=== PATIENT | male | born 1965 | race African-American/Black ===

== ENCOUNTER 2016-09-17 21:14 | Emergency (ER) | payer OTHER ==
[~2016-09-17] VITALS: Ht 177.8 cm; Wt 93.4 kg
[~2016-09-17 21:14] MED LIST: NAPR1TAB9 PO
[2016-09-17 21:17] VITALS: TEMP 37; Ht 177.8 cm; Wt 93.4 kg
[2016-09-17] MEDS ORDERED: BENZOCAINE 20% (ORAJEL) 11.9 GM TUBE MT STA (21:36)
[2016-09-17] MEDS ORDERED: CLIN150C PO (21:40)
[2016-09-17] MEDS ORDERED: TRAM-10 PO (21:40)
[2016-09-17] MEDS ORDERED: TRAMADOL HCL 50 MG HOME PACK PO ONE (21:45)
[2016-09-17] MEDS ORDERED: CLINDAMYCIN 150MG HOME PACK PO ONE (21:45)
[2016-09-17 21:48] VITALS: BP 150/100; PULSE 80; O2SAT 98
--- NOTE | 2016-09-17 22:51 | EMERGENCY ROOM VISIT NOTE ---
History First contact with patient: 21:25 Chief Complaint: DENTAL PAIN Stated Complaint: ABCESS IN MOUTH Nursing Triage Summary: pt c/o having an abcess in mouth a couple weeks ago and now it came back and is causing pain History of Present Illness The patient is a 50 year old male who presents to the Emergency Room with complaints of dental pain for the past few days who has not seen a dentist in over 3 years. He describes the pain as aching, ranging in severity 8 out of 10. Nothing makes it better or worse. Patient denies facial swelling, fevers, dysphagia, chest pain, dyspnea, sore throat, cold symptoms. He is tolerating by mouth fluids and food. Review of Systems See HPI for pertinent positives & negatives. A total of 10 systems reviewed and were otherwise negative. Past Medical/Surgical History Medical Problems: (1) Tobacco Use Disorder Surgical Problems: (1) No significant past surgical history Social History Smoking Status: Current Every Day Smoker Alcohol Use: occasionally Housing Status: lives alone Occupation Status: employed Current/Historical Medications Scheduled Clindamycin Hcl (Cleocin), 150 MG PO QID Naproxen (Aleve), 440 MG PO Q12 Scheduled PRN Tramadol (Ultram), 1-2 TAB PO Q4H PRN for Pain Allergies Coded Allergies: Penicillins (Verified Allergy, Intermediate, RASH-ITCHINESS, 09/17/16) Physical Exam Vital Signs Date Time Temp Pulse Resp B/P Pulse Ox O2 Delivery O2 Flow Rate FiO2 09/17/16 21:48 80 150/100 98 Room Air 09/17/16 21:17 37.0 80 18 159/110 98 Room Air Pain Rating (0-10): 8.0 Physical Exam VITALS: Vitals are noted on the nurse's note and reviewed by myself. Vital signs hypertensive. GENERAL: Pleasant male, in no acute distress, nondiaphoretic, well-developed well-nourished. SKIN: The skin was without rashes, erythema, edema, or bruising. There is no tenting of the skin. Capillary reflex less than 2 seconds. HEAD: Normocephalic atraumatic. EARS: External auditory canals clear, tympanic membranes pearly brock without erythema or effusion bilaterally. EYES: Pupils equal round and reactive to light and accommodation. Conjunctivae without injection, sclerae without icterus. Extraocular movements intact. NOSE: Patent, turbinates without inflammation or discharge. No sinus tenderness. MOUTH: Mucous membranes moist. No Moises angina. Pharynx without erythema or exudate. Uvula midline. Airway patent. Tongue does not deviate. Dental exam: Extensive plaque buildup with dental decay with no palpable abscess overall dental hygiene fair NECK: Supple without nuchal rigidity. No lymphadenopathy. No thyromegaly. Cervical spine is nontender. No JVD. HEART: Regular rate and rhythm without murmurs gallops or rubs. LUNGS: Clear to auscultation bilaterally without wheezes, rales or rhonchi. No dullness to percussion. No retractions or accessory muscle use. ABDOMEN: Positive bowel sounds x 4. Normal tympanic percussion. Soft, nontender, without masses or organomegaly. Johnson sign negative. No guarding or rebound tenderness. MUSCULOSKELETAL: No muscle atrophy, erythema, or edema noted. NEURO: Patient was alert and oriented to person place and time. Normal sensation to light and sharp touch. No focal neurological deficits. Medical Decision & Procedures Medications Administered Medications (Trade) Dose Ordered Sig/Rex Route Start Time Stop Time Status Last Admin Dose Admin Tramadol HCl (Ultram Home Pack) 1 homepack UD ONCE PO 09/17/16 21:45 09/17/16 21:46 DC 09/17/16 22:03 1 HOMEPACK Clindamycin HCl (Cleocin 150MG Home Pack) 1 homepack UD ONCE PO 09/17/16 21:45 09/17/16 21:46 DC 09/17/16 22:02 1 HOMEPACK Benzocaine (Orajel 2% Oral Gel) 1 appln NOW STAT MT 09/17/16 21:36 09/17/16 21:38 DC 09/17/16 22:04 1 APPLN ED Course Prior records reviewed and summarized as above. Triage Nursing notes reviewed. The patient's history was concerning for dental pain Differential diagnosis: Etiologies such as Moises angina, cellulitis, abscess, cavity, gingivitis, as well as others were entertained.. Physical examination: The physical examination was consistent with dental pain and dental caries ER treatment provided: Cleocin, Orajel, Ultram On reassessment the patient felt better. Diagnostics interpreted by me: Deferred This appears to be dental pain from dental caries and elevated blood pressure. Patient was given a list of PCPs in the area and advised to follow-up. He is advised to monitor his blood pressure. He is advised to quit smoking. He is counseled on proper dental hygiene. He is advised follow-up with dentistry as soon as possible for definitive care for his ongoing dental issues. He is advised to return to the ER immediately for facial swelling, fevers, dysphagia, worsening signs or symptoms or as needed. Patient will assess on exam. No signs of Moises angina. He was well-appearing. By the evaluation outlined above emergent etiologies such as abscess, Moises angina, as well as others were deemed relatively unlikely. The pt informed about the findings as listed above. All questions were answered and pleased with the treatment. Return instructions were outlined and the patient was discharged in stable condition. Outpatient prescription management: Cleocin, Ultram Referral: The patient was referred back to dentist and primary care physician for follow- up in 2 to 3 days for a recheck of the current condition. Medical Decision As above [place] Drug Monitoring Program Search Results: patient reviewed within database, no issues identified Impression Primary Impression: Tooth pain with chewing Additional Impression: Dental caries Departure Information Dispostion Home / Self-Care Condition GOOD Prescriptions Tramadol (Ultram) 50 Mg Tab 1-2 TAB PO Q4H Y for Pain, #14 TAB For Initial Treatment Prov: Harleen Encarnacion .KATLYN 09/17/16 Clindamycin Hcl (CLEOCIN) 150 Mg Cap 150 MG PO QID, #40 CAP Prov: Harleen Encarnacion .KATLYN 09/17/16 Referrals No Doctor, Assigned (PCP) Forms HOME CARE DOCUMENTATION FORM, IMPORTANT VISIT INFORMATION Patient Instructions Visit Dental, [facility], [facility] Additional Instructions Monitor yor blood pressure. Clindamycin 150mg: Take one pill 4 times daily for 10 days for your infection. Take with food, but avoid dairy. Avoid prolonged sun exposure since this medication makes you temporarily more susceptible to sunburns. All antibiotics can cause diarrhea. If this occurs and you feel worse or it does not resolve in 1-2 days follow up with your doctor or return to the Emergency Department as this could be signs of serious underlying problems. Any medication can cause an allergic reaction, stop the pills immediately and return to the ER for rash, hives, breathing difficulties, or swelling. Ultram 50mg: Take 1-2 pills every four hours for breakthrough pain. Avoid alcohol, operating machinery or dangerous equipment, working on ladders or roofs , DRIVING, or situations where being under the influence may be dangerous. It is recommended to use an yemc-jvc-lrrzgtu stool softener such as Colace, 100mg twice daily while taking this medication to avoid constipation. Ibuprofen(Motrin, Advil) may be used for fever or pain. Use 600mg every six hours as needed. Take with food. Avoid using more than 2400mg in a 24 hour period. Do not use 2400mg per day for more than three consecutive days without physician direction. Prolonged inappropriate use can lead to stomach upset or ulcers. This medication can be taken if you need to drive, work, or perform activities which may be dangerous when taking narcotic pain medication. (AND/OR) Acetaminophen(Tylenol) may be used for fever or pain. Use 1000mg every six hours as needed. Avoid using more than 3000mg in a 24 hour period. This medication can be taken if you need to drive, work, or perform activities which may be dangerous when taking narcotic pain medication. [place] teeth twice a day, floss daily and do warm saltwater gargles 3 times a day. See a dentist as soon as possible for definitive care for your dental problem. Return to ER sooner for facial swelling, fever, redness, worsening signs or symptoms or as needed. Problem Qualifiers
== END 2016-09-17 22:08 | disposition home or self-care (01) ==
LOC: C.EDB 21:15 → C.EDD 22:08
DX: K08.89 Other specified disorders of teeth and supporting structures (principal); K02.9 Dental caries, unspecified; F17.200 Nicotine dependence, unspecified, uncomplicated; Z88.0 Allergy status to penicillin

== ENCOUNTER 2018-11-24 13:53 | Inpatient (IN) ==
[2018-11-24 14:20] LABS: Basophils # (auto) 0.05 K/uL (0-0.2); Basophils % (auto) 0.8 %; Eosinophils % (auto) 6.2 %; Hematocrit (blood only) 41.9 % (42-52); Hemoglobin 14.6 g/dL (14.0-18.0); Immature Granulocytes # (auto) 0.01 K/uL (0.00-0.02); Immature Granulocytes % (auto) 0.2 %; Lymphocytes # (auto) 2.36 K/uL (1.2-3.4); Lymphocytes % (auto) 36.8 %; Mean Corpuscular Hgb Conc 34.8 g/dL (32-36); Mean Corpuscular Volume 88.4 fL (80-100); Monocytes # (auto) 0.61 K/uL (0.11-0.59); Monocytes % (auto) 9.5 %; Neutrophils # (auto) 2.98 K/uL (1.4-6.5); Neutrophils % (auto) 46.5 %; Platelet Count 239 K/uL (130-400); RDW Coefficient of Variation 15.4 % (11.5-14.5); RDW Standard Deviation 50.2 fL (36.4-46.3); Red Blood Count 4.74 M/uL (4.7-6.1); White Blood Count 6.41 K/uL (4.8-10.8)
--- NOTE | 2018-11-24 14:26 | XRay Report ---
SINGLE VIEW CHEST CLINICAL HISTORY: Atypical chest pain. FINDINGS: An AP, portable, upright chest radiograph is obtained. No prior studies are available for c omparison at the time of dictation. The cardiomediastinal silhouette is unremarkable. The lungs and pleural spaces are clear. No pneumothorax is seen. The bony thorax is grossly intact. IMPRESSION: No active disease in the chest. Electronically signed by: Tato Vences M.D. 11/24/2018 2:25 PM
[2018-11-24 14:53] LABS: Albumin Globulin Ratio 1.2 (0.9-2); Albumin Level 3.8 gm/dl (3.4-5.0); BUN Creatinine Ratio 13.7 (10-20); Bilirubin,Total 0.3 mg/dl (0.2-1); Creatinine Clr Calc Pharmacy 107.7 ml/min; Est GFR (African American) 106.1; Est GFR (Non-African American) 91.6; Globulin 3.1 gm/dl (2.5-4.0); Total Protein 6.9 gm/dl (6.4-8.2); Troponin I 0.128 ng/ml (0-0.045)
[2018-11-24 14:57] LABS: Potassium 4.1 mmol/L (3.5-5.1)
[2018-11-24] MEDS ORDERED: ASPIRIN CHEW 324 MG PO STA (15:06)
[2018-11-24] MEDS ORDERED: NITROGLYCERIN 2% OINTMENT 30GM TUBE EXT STA (15:06)
--- NOTE | 2018-11-24 16:17 | History & Physical Report ---
Date of Service November 24, 2018 Assessment & Plan (1) Non-ST elevation (NSTEMI) myocardial infarction: This is a 53yo M with a PMH of uncontrolled HTN, tobacco use who presents with chest pain that began at 0300 and was found to have NSTEMI. -Chest pain persisted, despite topical nitrates, so patient was taken for cardiac catheterization by Dr. Werner -Diagnostic cardiac catheterization revealed normal coronary arteries and elevated intracardiac pressures. Medical therapy recommended -Given full dose aspirin in ED -Fasting lipid panel is ordered for AM -Currently uncontrolled hypertension. Will need to be optimized -Monitor on telemetry (2) Hypertension: Uncontrolled hypertension likely contributing to chest pain -Will start on diuretic and calcium channel carlos -Monitor BP (3) Dyslipidemia, goal LDL below 70: Fasting lipid panel in AM (4) Tobacco use disorder: Counseled on cessation Code status: FULL PCP: No PCP. Will need to establish. Dispo: Admitted to telemetry. Plan to return home once medically stable. Patient seen in collaboration with Dr. Lou. Please see addendum. History of Present Illness Chief Complaint: chest pain Primary Care Provider: NO PCP This is a 53yo M with a PMH of uncontrolled HTN, tobacco use who presents with chest pain that began at 0300. Patient states that for the past 2 weeks, he has had left arm numbness and tingling. Developed chest pain around 0300 while having relations with his girlfriend. Describes pain as left-sided chest tightness with radiation down left arm. Also with associated difficulty catching his breath. Denies any nausea or diaphoresis. Was able to fall back asleep but then woke up this morning with recurrent chest pain and came to the ED for further evaluation. In ED, patient was noted to have elevated BP of 207/136 and was given 0.5 inch Nitropaste with mild improvement of pain. During my evaluation, patient stated he still had 2/10 chest tightness with associated left arm tingling. Denied any headache, visual changes, diaphoresis, shortness of breath or nausea. EGD revealed T wave inversion in lateral leads. Troponin elevated at 0.128. Family history of coronary artery disease, with mom having NE in 50s and dad with fatal NE at age 75. Patient has not established with primary care physician since moving to [place] 2 years ago. Thinks that he has underlying high blood pressure but has not taken medication for it. Currently smokes 2 to 3 packs/week, with history of 40 pack years. Uses marijuana occasionally but denies any other drug use. Denies personal history of coronary artery disease or diabetes. Of note, also endorsing intermittent rectal bleeding with blood on tissue paper and some in toilet bowl. He was seen by gastroenterology, however declined colonoscopy. No fever, chills, lightheadedness, headache, palpitations, wheezing, nausea, vomiting, abdominal pain, dysuria, diarrhea or constipation. Allergies Allergy/AdvReac Type Severity Reaction Status Date / Time Penicillins Allergy Intermediate RASH-ITCHIN Verified 09/17/16 21:23 ESS Home Medications Home Medications Medication Instructions Recorded Confirmed Type amlodipine [Norvasc] 5 mg PO QAM 30 Days #30 tab 11/25/18 Rx atorvastatin 20 mg PO DAILY #30 tab 11/25/18 Rx hydrochlorothiazide 25 mg PO QAM 30 Days #30 tab 11/25/18 Rx Past Med/Surg History Medical History Hypertension (Chronic) Tobacco use disorder (Chronic) Surgical History No history of previous surgery (Chronic) Family History Other Heart disease Social History Preferred Language: [place] Communication Ability: Effective Business 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 Analyst Required: No Beliefs That Will Affect Care: Yazidi Yazidi Beliefs: Latter-Day Current Living Situation: Alone Other Information That Helps Us Care for You: No Feels Safe at Home: No Is there a partner from a previous relationship who is making you feel unsafe now?: No Any Concerns about Your Family Situation: No Would You Like to Speak to Someone About Your Situation: No Safety Concerns: Feels Safe At This Time Smoking Status: Current every day smoker Tobacco Type: cigarettes Years Smoked: 40 Do You Dip or Chew Tobacco: No Second Hand Exposure: Yes Tobacco Cessation Education Requested by Patient: No Hx Alcohol Use: Yes Alcohol type: beer, wine and hard liquor Alcohol type Comment: 2-3 drinks most days Hx Substance Use: Yes substance use type: marijuana Last Used Substance: Days (ago) Review of Systems Review of Systems: At least ten systems reviewed and negative except as noted in the HPI. Physical Exam Physical Exam: General Appearance: WD/WN, anxious but cooperative Head: normocephalic, atraumatic Eyes: normal inspection, PERRL, EOMI ENT: hearing grossly normal, pharynx normal (moist mucous membranes) Neck: supple, no JVD, no adenopathy Respiratory/Chest: lungs clear to auscultation. No wheezes, rales or rhonci. No respiratory distress or accessory muscle use Cardiovascular: regular rate, rhythm, no murmur, normal peripheral pulses Abdomen/GI: normal bowel sounds, soft, non-tender to palpation Extremities/Musculoskelatal: normal inspection, no calf tenderness, normal capillary refill, no pedal edema Neurologic/Psych: alert, normal mood/affect, oriented x 3 Skin: normal color, warm/dry Results & Data Vital Signs (Past 12 Hours) Vital Signs Temp Pulse Pulse Resp BP BP Pulse Ox 11/24/18 15:43 62 16 178/111 H 99 11/24/18 15:15 62 17 207/136 H 100 11/24/18 14:56 61 17 179/115 H 97 11/24/18 13:55 36.5 C 69 16 170/108 H 100 Laboratory Results Short CBC 11/24/18 Range/Units 14:08 WBC 6.41 (4.8-10.8) K/uL Hgb 14.6 (14.0-18.0) g/dL Hct 41.9 L (42-52) % Plt Count 239 (130-400) K/uL BMP 11/24/18 14:08 Sodium 142 Potassium 4.1 Chloride 107 Carbon Dioxide 29 BUN 13 Creatinine 0.94 Glucose 97 Calcium 9.0 Cardiac Enzymes 11/24/18 Range/Units 14:08 Troponin I 0.128 H* (0-0.045) ng/ml Liver Function 11/24/18 Range/Units 14:08 Total Bilirubin 0.3 (0.2-1) mg/dl AST 21 (15-37) U/L ALT 38 (12-78) U/L Alkaline Phosphatase 64 (45-117) U/L Albumin 3.8 (3.4-5.0) gm/dl Diagnostic Findings CXR: IMPRESSION: No active disease in the chest. ECG Rhythm: normal sinus Findings: + T-wave inversion (lateral leads ) Comparison ECG Date: no prior available Supervising Physician Co-Signing Physician Notes Pt was seen and examined. Agreed with KATLYN Mackey exam, assessment and plan. 53yo M with a PMH of uncontrolled HTN, tobacco use who presents with chest pain. Initial troponin on admission 0.128. Continue to have chest pain. Had to get emergent cardiac cath. Cardiac catheterization demonstrates normal coronary anatomy without obstructive CAD. Will adjust BP med. Will monitor in telemetry. Please refer to [facility] documentation for other problems. MD Dasha
--- NOTE | 2018-11-24 16:38 | Pre Anesthesia Assessment ---
Date of Service November 24, 2018 Pre Sedation Assessment Vital Signs Temp Pulse Pulse Resp BP BP Pulse Ox 11/25/18 07:07 36.7 C 57 L 14 151/99 H 99 11/25/18 04:00 37 C 64 16 150/70 H 95 11/25/18 03:00 36.6 C 58 L 16 155/91 H 97 11/24/18 23:40 36.6 C 70 16 152/95 H 95 11/24/18 21:31 57 L 16 96 11/24/18 21:30 58 L 21 161/102 H 97 11/24/18 21:16 59 L 21 98 11/24/18 21:15 62 19 177/100 H 98 11/24/18 21:12 36.6 C 59 L 22 177/100 H 95 11/24/18 21:01 58 L 20 97 11/24/18 21:00 58 L 18 162/103 H 97 11/24/18 20:47 60 19 167/97 H 100 11/24/18 20:45 58 L 18 99 11/24/18 20:31 62 18 98 11/24/18 20:30 58 L 20 147/99 H 98 11/24/18 20:20 62 18 100 11/24/18 20:19 61 23 155/116 H 96 11/24/18 20:12 63 18 155/116 H 100 11/24/18 20:05 59 L 18 143/91 H 99 11/24/18 20:00 68 21 217/146 H 100 11/24/18 19:46 66 19 213/136 H 98 11/24/18 19:45 59 L 18 98 11/24/18 19:42 59 L 16 213/136 H 11/24/18 19:30 73 18 184/109 H 11/24/18 19:15 70 19 202/128 H 98 11/24/18 19:12 64 16 202/128 H 11/24/18 19:01 53 L 15 100 11/24/18 19:00 55 L 17 177/107 H 99 11/24/18 18:57 53 L 18 177/107 H 11/24/18 18:46 55 L 17 98 11/24/18 18:45 54 L 14 172/112 H 99 11/24/18 18:31 56 L 14 97 11/24/18 18:30 54 L 17 171/116 H 98 11/24/18 18:18 54 L 21 173/111 H 99 11/24/18 18:15 67 32 H 11/24/18 18:00 56 L 13 11/24/18 17:48 148/100 H 99 11/24/18 17:45 37 C 56 L 16 148/100 H 98 11/24/18 15:43 62 16 178/111 H 99 11/24/18 15:15 62 17 207/136 H 100 11/24/18 14:56 61 17 179/115 H 97 11/24/18 13:55 36.5 C 69 16 170/108 H 100 Cardiovascular RRR, no murmur, no edema Respiratory normal respiratory effort, lungs clear to auscultation Pre-Sedation Airway Assessment Smoking Status: Current every day smoker ASA: ASA4 Notes The planned sedation has been discussed with the patient. Informed Consent was obtained. I have identified the patient, determined the appropriateness of sedation and have assessed the patient immediately prior to the procedure. All medicine(s) and interventions are by my order.
[2018-11-24] MEDS ORDERED: fentaNYL citrate 100 MCG/2 ML VIAL ONE (16:40)
[2018-11-24] MEDS ORDERED: MIDAZOLAM HCL 1 MG/ML 2ML VIAL ONE (16:40)
[2018-11-24] MEDS ORDERED: HEPARIN (PORCINE) 1000 UNIT/ML 10 ML (CATH LAB USE ONLY) ONE (16:41)
[2018-11-24] MEDS ORDERED: NITROGLYCERIN/D5W 100MCG/ML 20ML SYR ONE (16:41)
--- NOTE | 2018-11-24 16:44 | Cardiology Consultation ---
Date of Consultation November 24, 2018 Assessment & Plan (1) Non-ST elevation (NSTEMI) myocardial infarction: (2) HTN (hypertension): (3) Dyslipidemia, goal LDL below 70: 53-year-old patient presented emergency department with chest tightness elevated troponin suggestive of nstemi. Patient has chest discomfort despite nitroglycerin and topical nitrates. Received 4 aspirin in ER. ECG with changes suggestive of LAD territory ischemia. Recommend urgent cardiac catheterization. Risk, benefits, alternatives to catheterization discussed with patient. He is agreeable. Will initiate beta-carlos, statin post procedure. Patient describes a history of remittent rectal bleeding however hemoglobin remains stable. Recommend gastroenterology consultation for further evaluation. Further recommendations pending results of cardiac catheterization. History of Present Illness Reason for Consultation: NSTEMI Requesting Physician: Dr. Abreu Attending Physician: Dr. Abreu History of Present Illness 53-year-old patient presents emergency department with waxing and waning chest discomfort over the past 24 hours. Initially developed chest tightness left eating while having relations with his girlfriend. Described a tightness that radiated down his left arm. Then noted a generalized feeling of unwellness. He woke this morning again with recurrent chest tightness as well as left arm numbness. He became concerned and decided to come to the emergency department for further evaluation and treatment. Initial troponin upon arrival to the ER mildly elevated. ECG demonstrating lateral biphasic T waves suggesting ischemia. Patient seen and examined at the bedside. Describes ongoing 1-2/10 chest tightness without radiation. Denies any dyspnea currently. Markedly hypertensive on admission. Treated with topical nitrates with mild improvement of systolic blood pressure. Denies prior history of coronary disease, congestive heart failure, rheumatic fever as a child, diabetes. Patient does not typically follow with physicians. Denies any prior medical problems. Denies family history of premature coronary disease. Patient reports intermittent rectal bleeding. Describes blood on tissue as well at times blood in the toilet bowl. He was seen by gastroenterology, however declined colonoscopy. His hemoglobin is within normal limits. No signs or symptoms of GI blood loss today. Allergies Allergy/AdvReac Type Severity Reaction Status Date / Time Penicillins Allergy Intermediate RASH-ITCHIN Verified 09/17/16 21:23 ESS Home Medications Home Medications Medication Instructions Recorded Confirmed Type naproxen sodium [Aleve] 440 mg PO Q12H PRN #0 tab 06/30/15 11/24/18 History Patient History Social History Feels Safe at Home: Yes Smoking Status: Current every day smoker Review of Systems Review of Systems: All systems reviewed & are unremarkable except as noted in HPI & below Physical Exam Physical Exam: General: NAD, AAO x3, well nourished. HEENT: Normocephalic. Atraumatic. Conjunctiva pink, no scleral icterus. Neck: No carotid bruits, the carotid upstrokes are brisk. No JVD. No HJR Heart: Regular normal S-1 and S-2 no S-3 or S-4 gallop. No murmurs or rub appreciated. PMI is not displaced. No RV heave. Lungs: Clear bilateral without rales , rhonchi, or wheeze. Abdomen: Normal bowel sounds. Soft. Nontender. No masses or organomegaly. No abdominal b ruits. Extremities: No clubbing, cyanosis, or edema. Pulses: radial=2/4, Dorsalis pedis =2/4, posterior tibial=2/4. Neuro: Cranial nerves grossly intact. No focal motor deficit. Results & Data Vital Signs (Past 12 Hours) Vital Signs Temp Pulse Pulse Resp BP BP Pulse Ox 11/24/18 15:43 62 16 178/111 H 99 11/24/18 15:15 62 17 207/136 H 100 11/24/18 14:56 61 17 179/115 H 97 11/24/18 13:55 36.5 C 69 16 170/108 H 100
--- NOTE | 2018-11-24 17:31 | Post Anesthesia Assessment ---
Date of Service November 24, 2018 Post Sedation Assessment Vital Signs Temp Pulse Pulse Resp BP BP Pulse Ox 11/25/18 07:07 36.7 C 57 L 14 151/99 H 99 11/25/18 04:00 37 C 64 16 150/70 H 95 11/25/18 03:00 36.6 C 58 L 16 155/91 H 97 11/24/18 23:40 36.6 C 70 16 152/95 H 95 11/24/18 21:31 57 L 16 96 11/24/18 21:30 58 L 21 161/102 H 97 11/24/18 21:16 59 L 21 98 11/24/18 21:15 62 19 177/100 H 98 11/24/18 21:12 36.6 C 59 L 22 177/100 H 95 11/24/18 21:01 58 L 20 97 11/24/18 21:00 58 L 18 162/103 H 97 11/24/18 20:47 60 19 167/97 H 100 11/24/18 20:45 58 L 18 99 11/24/18 20:31 62 18 98 11/24/18 20:30 58 L 20 147/99 H 98 11/24/18 20:20 62 18 100 11/24/18 20:19 61 23 155/116 H 96 11/24/18 20:12 63 18 155/116 H 100 11/24/18 20:05 59 L 18 143/91 H 99 11/24/18 20:00 68 21 217/146 H 100 11/24/18 19:46 66 19 213/136 H 98 11/24/18 19:45 59 L 18 98 11/24/18 19:42 59 L 16 213/136 H 11/24/18 19:30 73 18 184/109 H 11/24/18 19:15 70 19 202/128 H 98 11/24/18 19:12 64 16 202/128 H 11/24/18 19:01 53 L 15 100 11/24/18 19:00 55 L 17 177/107 H 99 11/24/18 18:57 53 L 18 177/107 H 11/24/18 18:46 55 L 17 98 11/24/18 18:45 54 L 14 172/112 H 99 11/24/18 18:31 56 L 14 97 11/24/18 18:30 54 L 17 171/116 H 98 11/24/18 18:18 54 L 21 173/111 H 99 11/24/18 18:15 67 32 H 11/24/18 18:00 56 L 13 11/24/18 17:48 148/100 H 99 11/24/18 17:45 37 C 56 L 16 148/100 H 98 11/24/18 15:43 62 16 178/111 H 99 11/24/18 15:15 62 17 207/136 H 100 11/24/18 14:56 61 17 179/115 H 97 11/24/18 13:55 36.5 C 69 16 170/108 H 100 Recovery Score Activity: Moves 4 extremities Respiration: Deep Breath/Cough Circulation: +/-20% PreAnes Value Consciousness: Fully Awake Oxygen Saturation: > 92% On Room Air Post Sedation Plan On clinical assessment, the patient appears to have tolerated the sedation without complications. Patient is recovering as anticipated. Patient will continue to be monitored by nursing and may be discharged when sedation discharge criteria are met per below protocol. Upon Completions of procedure and additional 15 minutes continue every 5 minute vital signs and the P.A.R. score; then discharge to a Phase I or Fast Track to Phase II per the following guidelines: * Discharge Patient to appropriate Phase II area if PAR is 8 or greater or return to pre- procedure baseline. The post - procedure orders will be as directed. * If PAR score is less than 8 or not return to pre-procedure baseline then patient will follow Phase I monitoring till PAR is reached for Phase II. The Phase I may be done in procedure room or may call to secure a Phase I area. * If naloxone or flumazenil are used for reversal, hold in Phase I for continued monitoring from when last reversal dose was given for a minimum of 60 minutes or longer pending the nurse and/or physician discretion of patient condition before discharge to Phase II. Please call the Sedation Physician to re-evaluate and complete post-note for discharge to Phase II area. Do NOT discharge from procedure sedation or Phase 1 until post- sedation evaluation note is complete by procedure /sedation MD Sedation Discharge Instructions to be given to the patient at discharge to home.
--- NOTE | 2018-11-24 17:45 | Cardiac Catheterization ---
Cardiac Cath Procedure Full Procedure Date November 24, 2018 Pre-Procedure Diagnosis Pre-Procedure Diagnosis: Non STEMI AUC Score AUC Score: 8 Post-Procedure Diagnosis Post-Procedure Diagnosis: Normal Coronary Arteries and Elevated Intracardiac Pressures Procedure(s) Performed Procedure(s) Performed: Coronary Angiography and Left Heart Cath Sandblasting Supervisor Stephon Werner DO Lehr Cutter(s) Avinash UROGYNAECOLOGIST Estimated Blood Loss Estimated Blood Loss: 5cc Medication(s) Medication(s): Fentanyl, Heparin, Lidocaine 1%, Nicardipine, Nitroglycerin and Versed Summary of Findings Mild ostial (20%) left main taper Hemodynamics Rest Ao:: 136/94/115 Final Ao: 133/94/113 LV: 129/38/21 Recommendations Recommendations: Medical Therapy and/or Counseling Specimens Specimens: None Radiation Exposure (mGy) 1637 Contrast (mls) 100 Fluids (cc crystalloids) Fluids (cc crystalloids): 45cc Nss Anesthesia Moderate Sedation. Start 1658. End 1726. Sedation Monitor: Omar YOUNG Procedural Complication(s) None Disposition PCU ACC Data: Instructor Of Nursing Cardiac Status Clinical evaluation leading to the procedure CAD Presenation: Non STEMI Anginal Classification: CCS IV Heart Failure: No Cardiogenic Shock within 24 Hours: No Cardiac Arrest within 24 Hours: No Imaging Studies Past 6 Months: No Stress Studies Past 6 Months: No STEMI OR Non-STEMI Symptom Onset Date: 11/24/18 Symptom Onset Time: 03:00 Thrombolytics: No Coronary Anatomy Dominant: Right Left Main (% Stenosis): Normal LAD (% Stenosis): Normal D1 (% Stenosis): Normal D2 (% Stenosis): Normal Circumflex (% Stenosis): Normal OM1 (% Stenosis): Normal RCA (% Stenosis): Normal R PDA (% Stenosis): Normal R PL1 (% Stenosis): Normal AM (% Stenosis): Normal Ramus (% Stenosis): Normal Diagnostic Physicians Name: Stephon Werner DO Closure Device Recommendations: Medical Therapy and/or Counseling
[2018-11-24] MEDS ORDERED: ACETAMINOPHEN 325 MG TAB PO PRN (18:57)
[2018-11-24] MEDS ORDERED: HydrALAZINE HCL 20 MG/ML VIAL IV PRN (19:51)
--- NOTE | 2018-11-24 20:17 | Emergency Department Note ---
Entered by Lisy Rene acting as a scribe for Rony Serrano MD ED Provider Note CHIEF COMPLAINT: Chest pain HISTORY OF PRESENT ILLNESS: The patient is a 53 year old male who presents to the Emergency Room with complaints of an episode of dull chest pain prior to arrival. The patient reports that he has been experiencing this intermittent chest pain that radiates pain down his left arm for a few weeks now. He states that the episode he experienced today was caused after physical activity. He claims that the chest pain is a 6/10 when it is at its peak and a 2/10 in the ED today. The patient claims that he has had intermittent back pain for a few weeks now. He also reports that he has passed blood in his stool 4 times in the past month, with the most recent episode being a week ago. The patient admits that he has been told his blood pressure is high before, but denies taking medication for it. The patient denies that he has a PCP. The patient denies any recent travel. Pt denies LOC, headache, fevers, chills, diaphoresis, visual changes, neck pain, chest pain, breathing difficulties, nausea, vomiting, abdominal pain, back pain, melena, hematochezia, urinary symptoms, numbness, weakness, swelling of the legs, lymphadenopathy, rash, or other complaints. REVIEW OF SYSTEMS: See HPI for pertinent positives and negatives. A total of ten systems were reviewed and were otherwise negative. PMHx/PSHx: The patient broke his ankle in 2009 and broke his right hand in 2015. SOCIAL HISTORY: Patient lives at home. Patient is a smoker. PHYSICAL EXAM: GENERAL: Awake, alert, well-appearing, in no distress HENT: Normocephalic, atraumatic. Oropharynx unremarkable. EYES: PERRL. Normal conjunctiva. Sclera non-icteric. NECK: Inspection normal. Non-tender. Supple. No nuchal rigidity. FROM. No masses. RESPIRATORY: Clear to auscultation. No wheezes. No rales. Normal respiratory effort. CARDIAC: Normal rate. Normal rhythm. No murmurs. No rubs. Extremities warm and well perfused. Pulses equal. No JVD. GI: Soft, non-distended. No tenderness to palpation. No rebound or guarding. No masses. RECTAL: Deferred. MUSCULOSKELETAL: Atraumatic. Chest examination reveals no tenderness. The back is symmetrical on inspection without obvious abnormality. There is no CVA tenderness to palpation. No joint edema. LOWER EXTREMITIES: Calves are equal size bilaterally and non-tender. No edema. No discoloration. NEURO: Normal sensorium. No sensory or motor deficits noted. SKIN: No rash or jaundice noted. EMERGENCY DEPARTMENT COURSE: 1410: Past medical records reviewed. The patient was evaluated in room C8, and a complete history and physical examination were performed. 1515: I reevaluated the patient at this time and updated him on his test results and treatment plan. 1520: I discussed the patients case with KATLYN Botello. She informed me that the patient will be admitted under Bob Boudreaux, for further management MEDICAL DECISION MAKING: Triage Nursing notes reviewed and agree them. The patient's history was concerning for chest pain. Differential diagnosis: Etiologies such as cardiac ischemia, aortic dissection, pulmonary embolism, pneumonia, pneumothorax, musculoskeletal, infections, pericarditis, myocarditis, esophageal rupture, gastrointestinal, as well as others were entertained. Physical examination: As above. ER treatment provided: Aspirin Nitropaste On reassessment the patient felt better. Diagnostic interpretation by me: The electrocardiogram was concerning for cardiac ischemia. No ST elevation. The labs revealed an unremarkable CBC and chemistry panel. The patient's troponin is elevated. Imaging studies: Chest x-ray negative. The patient's findings are concerning for a non-ST elevation FL given his elevated troponin, abnormal ECG and multiple cardiac risk factors. He is currently feeling well. He will need further management in the hospital. Consultation: A consultation was placed with the hospitalist. The case was discussed and diagnostics were reviewed. The patient was evaluated in the ER for further treatment. IMPRESSION: Non-STEMI, CP, HTN, elevated troponin, abnormal ECG PLAN: The patient was admitted for further management. The scribe's documentation has been prepared under my direction and personally reviewed by me in its entirety. I confirm that the note above accurately reflects all work, treatment, procedures, and medical decision making performed by me. CRITICAL CARE: I have personally spent greater than 30 minutes of critical care time in the direct management of this patient. This includes bedside care, interpretation of diagnostic studies, and testing, discussion with consultants, patient, and other required patient management activities. This 30 minutes is in excess of all separately billable procedures. Impression & Plan Non-ST elevated myocardial infarction (non-STEMI), HTN (hypertension), Chest pain, Elevated troponin Past Med/Surg History Medical History Hypertension (Chronic) Tobacco use disorder (Chronic) Surgical History No history of previous surgery (Chronic) Family History Other Heart disease Social History Preferred Language: Serbian Communication Ability: Effective Supervisor Doping Required: No Beliefs That Will Affect Care: Gnosticism Gnosticism Beliefs: Latter-Day Current Living Situation: Alone Other Information That Helps Us Care for You: No Feels Safe at Home: No Is there a partner from a previous relationship who is making you feel unsafe now?: No Any Concerns about Your Family Situation: No Would You Like to Speak to Someone About Your Situation: No Safety Concerns: Feels Safe At This Time Smoking Status: Current every day smoker Tobacco Type: cigarettes Years Smoked: 40 Do You Dip or Chew Tobacco: No Second Hand Exposure: Yes Tobacco Cessation Education Requested by Patient: No Hx Alcohol Use: Yes Alcohol type: beer, wine and hard liquor Alcohol type Comme nt: 2-3 drinks most days Hx Substance Use: Yes substance use type: marijuana Last Used Substance: Days ( ago) Results & Data Vital Signs Vital Signs - 24 hr 11/24/18 13:55 11/24/18 14:56 11/24/18 15:15 Temperature 36.5 C Temperature Source Oral Sepsis Recent Fever Within 48 Hours No Sepsis New/Unexplained Change in Mental Status No Sepsis Action Taken by Nursing No Action Required Pulse Rate 69 Pulse Rate [Apical] 61 62 Respiratory Rate 16 17 17 Blood Pressure 170/108 H Blood Pressure [Left Arm] 179/115 H 207/136 H Blood Pressure Mean 128 Blood Pressure Mean [Left Arm] 136 159 Blood Pressure Position [Left Arm] Sitting Sitting Pulse Oximetry 100 97 100 Oxygen Delivery Method Room Air Room Air Room Air 11/24/18 15:43 11/24/18 16:52 Temperature Temperature Source Sepsis Recent Fever Within 48 Hours Sepsis New/Unexplained Change in Mental Status Sepsis Action Taken by Nursing Pulse Rate Pulse Rate [Apical] 62 Respiratory Rate 16 Blood Pressure Blood Pressure [Left Arm] 178/111 H Blood Pressure Mean Blood Pressure Mean [Left Arm] 133 Blood Pressure Position [Left Arm] Sitting Pulse Oximetry 99 Oxygen Delivery Method Room Air Room Air Home Medications Current Medication List: was personally reviewed by me Laboratory Data Attestation: I reviewed the patient's lab results. Result diagrams: 11/24/18 14:08 11/24/18 14:08 Lab Results 11/24/18 11/24/18 11/24/18 Range/Units 14:08 14:08 14:08 WBC 6.41 (4.8-10.8) K/uL RBC 4.74 (4.7-6.1) M/uL Hgb 14.6 (14.0-18.0) g/dL Hct 41.9 L (42-52) % MCV 88.4 (80-100) fL MCH 30.8 (25-34) pg MCHC 34.8 (32-36) g/dL RDW Std Deviation 50.2 H (36.4-46.3) fL RDW Coeff of Vasu 15.4 H (11.5-14.5) % Plt Count 239 (130-400) K/uL MPV 10.0 (7.4-10.4) fL Immature Gran % (Auto) 0.2 % Neut % (Auto) 46.5 % Lymph % (Auto) 36.8 % Collier % (Auto) 9.5 % Eos % (Auto) 6.2 % Baso % (Auto) 0.8 % Immature Gran # (Auto) 0.01 (0.00-0.02) K/uL Neut # (Auto) 2.98 (1.4-6.5) K/uL Lymph # (Auto) 2.36 (1.2-3.4) K/uL Collier # (Auto) 0.61 H (0.11-0.59) K/uL Eos # (Auto) 0.40 (0-0.5) K/uL Baso # (Auto) 0.05 (0-0.2) K/uL POC D-Dimer (0-450) ng/mlFEU Sodium 142 (136-145) mmol/L Potassium 4.1 (3.5-5.1) mmol/L Chloride 107 (98-107) mmol/L Carbon Dioxide 29 (21-32) mmol/L Anion Gap 5.0 (3-11) BUN 13 (7-18) mg/dl Creatinine 0.94 (0.6-1.4) mg/dl Est Cr Clr Drug Dosing 107.7 ml/min Est GFR ( Amer) 106.1 Est GFR (Non-Af Amer) 91.6 BUN/Creatinine Ratio 13.7 (10-20) Glucose 97 (70-99) mg/dl Calcium 9.0 (8.5-10.1) mg/dl Total Bilirubin 0.3 (0.2-1) mg/dl AST 21 (15-37) U/L ALT 38 (12-78) U/L Alkaline Phosphatase 64 (45-117) U/L Troponin I 0.128 H* (0-0.045) ng/ml Total Protein 6.9 (6.4-8.2) gm/dl Albumin 3.8 (3.4-5.0) gm/dl Globulin 3.1 (2.5-4.0) gm/dl Albumin/Globulin Ratio 1.2 (0.9-2) Lipase 104 (73-393) U/L Specimen Hemolysis Hepatitis C Ab Screen Neg (Neg) 11/24/18 Range/Units 14:14 WBC (4.8-10.8) K/uL RBC (4.7-6.1) M/uL Hgb (14.0-18.0) g/dL Hct (42-52) % MCV (80-100) fL MCH (25-34) pg MCHC (32-36) g/dL RDW Std Deviation (36.4-46.3) fL RDW Coeff of Vasu (11.5-14.5) % Plt Count (130-400) K/uL MPV (7.4-10.4) fL Immature Gran % (Auto) % Neut % (Auto) % Lymph % (Auto) % Collier % (Auto) % Eos % (Auto) % Baso % (Auto) % Immature Gran # (Auto) (0.00-0.02) K/uL Neut # (Auto) (1.4-6.5) K/uL Lymph # (Auto) (1.2-3.4) K/uL Collier # (Auto) (0.11-0.59) K/uL Eos # (Auto) (0-0.5) K/uL Baso # (Auto) (0-0.2) K/uL POC D-Dimer 153 (0-450) ng/mlFEU Sodium (136-145) mmol/L Potassium (3.5-5.1) mmol/L Chloride (98-107) mmol/L Carbon Dioxide (21-32) mmol/L Anion Gap (3-11) BUN (7-18) mg/dl Creatinine (0.6-1.4) mg/dl Est Cr Clr Drug Dosing ml/min Est GFR ( Amer) Est GFR (Non-Af Amer) BUN/Creatinine Ratio (10-20) Glucose (70-99) mg/dl Calcium (8.5-10.1) mg/dl Total Bilirubin (0.2-1) mg/dl AST (15-37) U/L ALT (12-78) U/L Alkaline Phosphatase (45-117) U/L Troponin I (0-0.045) ng/ml Total Protein (6.4-8.2) gm/dl Albumin (3.4-5.0) gm/dl Globulin (2.5-4.0) gm/dl Albumin/Globulin Ratio (0.9-2) Lipase (73-393) U/L Specimen Hemolysis Hepatitis C Ab Screen (Neg) Administered Medications Discontinued Medications Aspirin (Aspirin) 324 mg PO NOW STA Stop: 11/24/18 15:07 Last Admin: 11/24/18 15:13 Dose: 324 mg Documented by: [id number] Fentanyl Citrate (Fentanyl Citrate) Confirm Administered Dose 100 mcg .ROUTE .[employer] ONE Stop: 11/24/18 16:41 Last Admin: 11/24/18 19:26 Dose: Not Given Documented by: [id number] Heparin Sodium (Porcine) (Heparin Iv Bolus (Playground Supervisor Use Only)) Confirm Administered Dose 10,000 units .ROUTE .[employer]-MED ONE Stop: 11/24/18 16:42 Last Admin: 11/24/18 19:27 Dose: Not Given Documented by: [id number] Heparin Sodium/Sodium Chloride (Heparin/Nss 1000 Unit/500ml Flush Bag) Confirm Administered Dose 3,000 units IV .STMWI ONE Stop: 11/24/18 16:42 Last Admin: 11/24/18 19:27 Dose: Not Given Documented by: [id number] Midazolam HCl (Versed) Confirm Administered Dose 2 mg .ROUTE .STK-MED ONE Stop: 11/24/18 16:41 Last Admin: 11/24/18 19:27 Dose: Not Given Documented by: [id number] Nitroglycerin (Nitro-Bid 2%) 0.5 inch EXT NOW STA Stop: 11/24/18 15:07 Last Admin: 11/24/18 15:13 Dose: 0.5 inch Documented by: [id number] Imaging Data Radiologist's Impression: Radiology results as stated below per my review and the radiologist's interpretation: SINGLE VIEW CHEST CLINICAL HISTORY: Atypical chest pain. FINDINGS: An AP, portable, upright chest radiograph is obtained. No prior studies are available for comparison at the time of dictation. The cardiomediastinal silhouette is unremarkable. The lungs and pleural spaces are clear. No pneumothorax is seen. The bony thorax is grossly intact. IMPRESSION: No active disease in the chest. Electronically signed by: Tato Vences M.D. 11/24/2018 2:25 PM ECG Data Attestation: I personally reviewed and interpreted this ECG as follows: Indication: chest pain Rate (beats per minute): 63 Rhythm: normal sinus Findings: + T-wave inversion (lateral); no PAC, no PVC and no ectopy Comparison ECG Date: no prior available Blood Pressure Blood Pressure Findings: Elevated blood pressure Blood Pressure Disposition: further management by hospitalist Discharge Plan Visit Data Chief Complaint: Chest Pain Stated Complaint: CHEST PAIN,NUMBNESS IN LEFT ARM ED Provider: Rony Serrano Discharge Problem: Non-ST elevated myocardial infarction (non-STEMI), HTN (hypertension), Chest pain, Elevated troponin Patient Disposition: Admitted As Inpatient Discharge Instructions Interventions: ED Discharge Assessment Last Done: 11/24/18 16:52 The scribe's documentation has been prepared under my direction and personally reviewed by me in its entirety. I confirm that the note above accurately reflects all work, treatment, procedures, and medical decision making performed by me.
[2018-11-24] MEDS ORDERED: TEMAZEPAM 15 MG CAPSULE PO PRN (20:40)
[2018-11-24] MEDS: AMLODIPINE BESYLATE 5 MG TAB PO SCH (21:28)
[2018-11-24] MEDS: hydroCHLOROthiazide 25 MG TAB PO SCH (21:28)
[2018-11-25 07:37] LABS: Hematocrit (blood only) 39.8 % (42-52); Hemoglobin 13.9 g/dL (14.0-18.0); Mean Corpuscular Hgb Conc 34.9 g/dL (32-36); Mean Corpuscular Volume 86.9 fL (80-100); Mean Platelet Volume 10.2 fL (7.4-10.4); Platelet Count 230 K/uL (130-400); RDW Coefficient of Variation 15.5 % (11.5-14.5); RDW Standard Deviation 49.3 fL (36.4-46.3); Red Blood Count 4.58 M/uL (4.7-6.1)
[2018-11-25] MEDS: hydroCHLOROthiazide 25 MG TAB PO SCH (07:41)
[2018-11-25] MEDS: AMLODIPINE BESYLATE 5 MG TAB PO SCH (07:42)
--- NOTE | 2018-11-25 08:17 | Cardiology Progress Note ---
Date of Service November 25, 2018 Assessment & Plan (1) Hypertensive urgency: (2) Non-ST elevation (NSTEMI) myocardial infarction: (3) Dyslipidemia, goal LDL below 70: 53-year-old patient presented emergency department with chest tightness elevated troponin suggestive of nstemi. Cardiac catheterization demonstrates normal coronary anatomy without obstructive CAD. Elevated left ventricular end- diastolic pressure as well as elevated systolic blood pressure noted. Patient treated with amlodipine and thiazide diuretic. Blood pressure improving. Feeling well from a cardiovascular perspective this morning. No recurrent chest discomfort. Troponins remain mildly elevated and flat. Increase hydrochlorothiazide to 25 mg daily. 2D transthoracic echocardiogram pending at this time. Continue amlodipine. Recommend outpatient gastroenterology follow- up for further evaluation of rectal bleeding. Patient may be discharged with close outpatient follow-up after echocardiogram complete. Subjective Patient seen and examined at the bedside. No recurrent chest discomfort or arm numbness overnight. Blood pressure remains elevated however improved compared to admission. No wrist discomfort, ecchymosis, or hematoma. Denies orthopnea, PND, lower external edema, or claudication. Tolerating addition of amlodipine and hydrochlorothiazide. Review of Systems Review of Systems: All systems reviewed & are unremarkable except as noted in HPI & below Physical Exam Physical Exam: General: NAD, AAO x3, well nourished. HEENT: Normocephalic. Atraumatic. Conjunctiva pink, no scleral icterus. Neck: No carotid bruits, the carotid upstrokes are brisk. No JVD. No HJR Heart: Regular normal S-1 and S-2 no S-3 or S-4 gallop. No murmurs or rub appreciated. PMI is not displaced. No RV heave. Lungs: Clear bilateral without rales , rhonchi, or wheeze. Abdomen: Normal bowel sounds. Soft. Nontender. No masses or organomegaly. No abdominal bruits. Extremities: No clubbing, cyanosis, or edema. Pulses: radial=2/4, Dorsalis pedis =2/4, posterior tibial=2/4. Neuro: Cranial nerves grossly intact. No focal motor deficit. Results & Data Vital Signs (Past 12 Hours) Vital Signs Temp Pulse Pulse Resp BP BP Pulse Ox 11/25/18 07:07 36.7 C 57 L 14 151/99 H 99 11/25/18 04:00 37 C 64 16 150/70 H 95 11/25/18 03:00 36.6 C 58 L 16 155/91 H 97 11/24/18 23:40 36.6 C 70 16 152/95 H 95 11/24/18 21:31 57 L 16 96 11/24/18 21:30 58 L 21 161/102 H 97 11/24/18 21:16 59 L 21 98 11/24/18 21:15 62 19 177/100 H 98 11/24/18 21:12 36.6 C 59 L 22 177/100 H 95 11/24/18 21:01 58 L 20 97 11/24/18 21:00 58 L 18 162/103 H 97 11/24/18 20:47 60 19 167/97 H 100 11/24/18 20:45 58 L 18 99 11/24/18 20:31 62 18 98 11/24/18 20:30 58 L 20 147/99 H 98 11/24/18 20:20 62 18 100 11/24/18 20:19 61 23 155/116 H 96
[2018-11-25 08:24] LABS: BUN Creatinine Ratio 17.4 (10-20); Calcium 8.7 mg/dl (8.5-10.1); Creatinine Clr Calc Pharmacy 115.3 ml/min; Est GFR (African American) 112.9; Est GFR (Non-African American) 97.4
[2018-11-25] MEDS ORDERED: ASPIRIN 81 MG ECTAB PO SCH (09:00)
[2018-11-25] MEDS ORDERED: hydroCHLOROthiazide 25 MG TAB PO SCH ×2 (09:00)
[2018-11-25 09:46] LABS: Estimated Average Glucose 123 mg/dl; Hemoglobin A1C 5.9 % (4.5-5.6)
--- NOTE | 2018-11-25 15:18 | Hospitalist Progress Note ---
Date of Service November 25, 2018 Assessment & Plan (1) Non-ST elevation (NSTEMI) myocardial infarction: Elevated troponin Present on admission with chest pain Elevated troponin mostly related to Hypertensive urgency Initial troponin 0.128 S/P cardiac cath done yesterday that revealed normal coronary arteries and elevated intracardiac pressures. Medical therapy recommended ECHO done showed no wall motion abnormality with normal EF Chol 176 and triglycerides 444 On aspirin now Will hold on aspirin on discharge due episode of rectal bleeding in the heather Recommend outpatient gastroenterology follow-up for further evaluation of rectal bleeding. case discussed with cardiology recommended to monitor BP OK from cardiac standpoint to discharge home (2) Hypertensive urgency: (3) Hypertension: BP increased to 217/146 on admission Starting on HCTZ 25mg and Amlodipine 5 mg Tolerated well this morning Continue monitor BP Advised pt to follow a low salt diet (4) Dyslipidemia, goal LDL below 70: Trig 444 and Chol 176 and HDL 29 ASCVD risk 26.8 Advised pt to follow a low cholesterol diet Will start on a low dose statin due to his ASCVD risk score Will need to check liver enzymes in 1 to 2 weeks (5) Rectal bleeding: Had episodes of GI bleed Had not had a colonoscopy Hgb stable Has been taking naproxen for pain, will d/c on discharge Will hold on aspirin for now on discharge since pt had a normal cardiac cath Recommend outpatient gastroenterology follow-up for further evaluation of rectal bleeding. Aspirin can restart after GI work up (6) Tobacco use disorder: Counseled on smoking cessation Code status: FULL PCP: No PCP. Will need to establish. Dispo: Discharge home today Follow up with your new primary care provider Dr. Manzano on 11/27 @ 1 PM at [facility] Subjective Pt was seen and examined Lying in bed with no distress Pt said that he feels fine Denies any chest pain, palpitation, dizziness and SOB Physical Exam Physical Exam: General- No acute distress Head- atraumatic Eyes- PERRL, EOMI, ENT- oropharynx clear Neck- supple, no JVD Lungs- clear to auscultation Heart- regular rhythm; no murmur Abdomen- normal bowel sounds, soft, nontender Extremities- no calf tenderness Neuro- alert, oriented x 3; PERRL, EOMI; no facial palsy; no dysarthria Skin- warm & dry Results & Data Vital Signs (Past 12 Hours) Vital Signs Temp Pulse Resp BP Pulse Ox 11/25/18 15:00 37.1 C 64 21 154/87 H 98 11/25/18 10:58 36.7 C 65 19 147/92 H 98 11/25/18 07:07 36.7 C 57 L 14 151/99 H 99 11/25/18 04:00 37 C 64 16 150/70 H 95
--- NOTE | 2018-11-27 09:30 | Discharge Summary ---
Date of Service November 25, 2018 Admission HPI Per Admitting Provider This is a 53yo M with a PMH of uncontrolled HTN, tobacco use who presents with chest pain that began at 0300. Patient states that for the past 2 weeks, he has had left arm numbness and tingling. Developed chest pain around 0300 while having relations with his girlfriend. Describes pain as left-sided chest tightness with radiation down left arm. Also with associated difficulty catching his breath. Denies any nausea or diaphoresis. Was able to fall back asleep but then woke up this morning with recurrent chest pain and came to the ED for further evaluation. In ED, patient was noted to have elevated BP of 207/136 and was given 0.5 inch Nitropaste with mild improvement of pain. During my evaluation, patient stated he still had 2/10 chest tightness with associated left arm tingling. Denied any headache, visual changes, diaphoresis, shortness of breath or nausea. EGD revealed T wave inversion in lateral leads. Troponin elevated at 0.128. Family history of coronary artery disease, with mom having MT in 50s and dad with fatal MT at age 75. Patient has not established with primary care physician since moving to [place] 2 years ago. Thinks that he has underlying high blood pressure but has not taken medication for it. Currently smokes 2 to 3 packs/week, with history of 40 pack years. Uses marijuana occasionally but denies any other drug use. Denies personal history of coronary artery disease or diabetes. Of note, also endorsing intermittent rectal bleeding with blood on tissue paper and some in toilet bowl. He was seen by gastroenterology, however declined colonoscopy. No fever, chills, lightheadedness, headache, palpitations, wheezing, nausea, vomiting, abdominal pain, dysuria, diarrhea or constipation. Admission Exam Per Admitting Provider General Appearance: WD/WN, anxious but cooperative Head: normocephalic, atraumatic Eyes: normal inspection, PERRL, EOMI ENT: hearing grossly normal, pharynx normal (moist mucous membranes) Neck: supple, no JVD, no adenopathy Respiratory/Chest: lungs clear to auscultation. No wheezes, rales or rhonci. No respiratory distress or accessory muscle use Cardiovascular: regular rate, rhythm, no murmur, normal peripheral pulses Abdomen/GI: normal bowel sounds, soft, non-tender to palpation Extremities/Musculoskelatal: normal inspection, no calf tenderness, normal capillary refill, no pedal edema Neurologic/Psych: alert, normal mood/affect, oriented x 3 Skin: normal color, warm/dry Principal Diagnosis Non-ST elevation (NSTEMI) myocardial infarction Elevated troponin Hypertensive urgency Hypertension Tobacco use disorder Dyslipidemia Discharge Exam General- No acute distress Head- atraumatic Eyes- PERRL, EOMI, ENT- oropharynx clear Neck- supple, no JVD Lungs- clear to auscultation Heart- regular rhythm; no murmur Abdomen- normal bowel sounds, soft, nontender Extremities- no calf tenderness Neuro- alert, oriented x 3; PERRL, EOMI; no facial palsy; no dysarthria Skin- warm & dry Discharge Data Allergies Allergy/AdvReac Type Severity Reaction Status Date / Time Penicillins Allergy Intermediate RASH-ITCHIN Verified 09/17/16 21:23 ESS Consultations 11/24/18 15:36 ED Decision to Admit Stat 11/24/18 16:49 Consult Cardiology Routine Procedures Performed Operation Date: 11/24/18 17:00 Actual Procedures s Cineradiography w/Routine Exam - Stephon Werner DO p Cath, Left with Cors and Vent - Stephon Werner DO Ordered Studies 11/24/18 16:45 CL Cath Imgs for PACS use only Stat SINGLE VIEW CHEST CLINICAL HISTORY: Atypical chest pain. FINDINGS: An AP, portable, upright chest radiograph is obtained. No prior studies are available for comparison at the time of dictation. The cardiomediastinal silhouette is unremarkable. The lungs and pleural spaces are clear. No pneumothorax is seen. The bony thorax is grossly intact. IMPRESSION: No active disease in the chest. Electronically signed by: Tato Vences M.D. 11/24/2018 2:25 PM Dictated: 11/24/18 1424 Transcribed: 11/24/18 1424 Hospital Course (1) Non-ST elevation (NSTEMI) myocardial infarction: Elevated troponin Present on admission with chest pain Elevated troponin mostly related to Hypertensive urgency Initial troponin 0.128 S/P cardiac cath done yesterday that revealed normal coronary arteries and elevated intracardiac pressures. Medical therapy recommended ECHO done showed no wall motion abnormality with normal EF Chol 176 and triglycerides 444 On aspirin now Will hold on aspirin on discharge due episode of rectal bleeding in the heather Recommend outpatient gastroenterology follow-up for further evaluation of rectal bleeding. case discussed with cardiology recommended to monitor BP OK from cardiac standpoint to discharge home (2) Hypertensive urgency: (3) Hypertension: BP increased to 217/146 on admission Starting on HCTZ 25mg and Amlodipine 5 mg Tolerated well this morning Continue monitor BP Advised pt to follow a low salt diet (4) Dyslipidemia, goal LDL below 70: Trig 444 and Chol 176 and HDL 29 ASCVD risk 26.8 Advised pt to follow a low cholesterol diet Will start on a low dose statin due to his ASCVD risk score Will need to check liver enzymes in 1 to 2 weeks (5) Rectal bleeding: Had episodes of GI bleed Had not had a colonoscopy Hgb stable Has been taking naproxen for pain, will d/c on discharge Will hold on aspirin for now on discharge since pt had a normal cardiac cath Recommend outpatient gastroenterology follow-up for further evaluation of rectal bleeding. Aspirin can restart after GI work up (6) Tobacco use disorder: Counseled on smoking cessation Code status: FULL PCP: No PCP. Will need to establish. Dispo: Discharge home today Follow up with your new primary care provider Dr. Manzano on 11/27 @ 1 PM at the [facility] Total Time Total Time Spent Total Time Spent (In Minutes): 35 minutes Total Time Includes: Examination of the Patient, Discharge Planning, Medication Reconciliation, Communication With Other Providers and Other Discharge Plan Discharge Items Patient Disposition: Home - Self-Care Reason For Visit: NSTEMI Discharge Diagnosis: Non-ST elevation (NSTEMI) myocardial infarction Elevated troponin Hypertensive urgency Hypertension Tobacco use disorder Dyslipidemia Discharge Goals: Decrease discomfort, Improve disease control, Increase independence and Improve nutritional status Activity: Resume your previous activity Activity Comment: As tolerated Non-emergency contact: Primary Care Provider Call non-emergency contact if: you have any medication questions and your pain is not controlled Follow-up/Referrals: PCP,NO [Primary Care Provider] - Diet: Heart Healthy Addtl Provider Instructions: Follow up with your new primary care provider Dr. Manzano on 11/27 @ 1 PM at the [facility] Monitor your blood pressure closely Your physician will titrate your blood pressure medications if need Follow a healthy diet with low cholesterol and low salt intake Check CMP in 1 to 2 weeks to monitor your electrolytes, your kidney (since you started on a water pill hydrochlorothiazide) Since you are starting on a cholesterol medication (Atorvastatin), your physician will check your live enzymes in 1-2 weeks You will need to follow up with a Gastroenterology for the intermittent rectal bleeding (your physician will refer you) Avoid any NSAID such as (aleve, naproxen, motrin , advil, ibuprofen, ...) due to increase risk of rectal bleeding Keep the area for the cardiac cath clean and dry to avoid any infection Do not use creams, lotions or ointment on the wound site Do not take a bath, tub soak, go in a Jacuzzi, or swim in a pool or [place] for one week after the procedure. Do not participate in strenuous activities for 3 days after the procedure. Gradually increase your activities until you reach your normal activity level within two days after the procedure. Avoid heavy lifting (more than 10 pounds) and pushing or pulling heavy objects for the first 5 days after the procedure. Prescriptions: New amlodipine [Norvasc] 5 mg Tablet 5 mg PO QAM 30 Days Qty: 30 RF: 0 hydrochlorothiazide 25 mg Tablet 25 mg PO QAM 30 Days Qty: 30 RF: 0 atorvastatin 20 mg tablet 20 mg PO DAILY Qty: 30 RF: 0 Discontinued naproxen sodium [Aleve] 220 mg Tablet 440 mg PO Q12H PRN (Reason: headache/ pain) Qty: 0 RF: 0 Stand-Alone Forms: Call Back Authorization, [facility] Discharge Orders: Discharge Order (Routine); Ordered 11/25/18 Ordered By: Shashank Lou Admission Data Admit Date/Time: 11/24/18 16:53 Attending Provider: Shashank Lou Admit Provider: Shashank Lou Primary Care Provider: PCP,NO Other Providers: Shashank Lou ; Stephon Werner Service: Telemetry Other Interventions: Discharge Summary Assessment (RN) Last Done: 11/25/18 17:17 DC Date/Time DO NOT enter until pt leaves facility: 11/25/18 17:43
== END 2018-11-25 17:43 | disposition home or self-care (01) | DRG 281 ==
LOC: ED 13:53 → CC 16:52 → 2E 16:53
DX: F17.200 Nicotine dependence, unspecified, uncomplicated; K62.5 Hemorrhage of anus and rectum; I21.4 Non-ST elevation (NSTEMI) myocardial infarction; E78.5 Hyperlipidemia, unspecified; I16.0 Hypertensive urgency; I10 Essential (primary) hypertension

== ENCOUNTER 2018-11-30 16:37 | Observation (INO) ==
[2018-11-30] MEDS ORDERED: NITROGLYCERIN SL 0.4 MG/TAB TAB SL STA (17:02)
[2018-11-30] MEDS ORDERED: ASPIRIN CHEW 324 MG PO STA (17:02)
--- NOTE | 2018-11-30 17:12 | XRay Report ---
XR chest 1V portable CLINICAL HISTORY: Chest Pain dyspnea COMPARISON STUDY: 11/24/2017 FINDINGS: The bones soft tissues and hemidiaphragms are normal. The cardiomediastinal silhouette is n ormal. The lungs are clear. The pulmonary vasculature is normal. IMPRESSION: Negative chest. The above report was generated using voice recognition software. It may contain grammatical, syntax or spelling errors. Electronically signed by: Elroy Minor M.D. 11/30/2018 5:11 PM
[2018-11-30] MEDS ORDERED: ASPIRIN 81 MG CHEW ONE (17:32)
[2018-11-30 17:40] LABS: Basophils # (auto) 0.05 K/uL (0-0.2); Eosinophils # (auto) 0.21 K/uL (0-0.5); Eosinophils % (auto) 4.2 %; Hematocrit (blood only) 44.3 % (42-52); Hemoglobin 15.4 g/dL (14.0-18.0); Immature Granulocytes # (auto) 0.01 K/uL (0.00-0.02); Immature Granulocytes % (auto) 0.2 %; Lymphocytes # (auto) 1.71 K/uL (1.2-3.4); Lymphocytes % (auto) 34.1 %; Mean Corpuscular Hgb Conc 34.8 g/dL (32-36); Mean Corpuscular Volume 86.4 fL (80-100); Mean Platelet Volume 10.4 fL (7.4-10.4); Monocytes # (auto) 0.41 K/uL (0.11-0.59); Monocytes % (auto) 8.2 %; Neutrophils # (auto) 2.63 K/uL (1.4-6.5); Neutrophils % (auto) 52.3 %; Platelet Count 242 K/uL (130-400); RDW Coefficient of Variation 14.5 % (11.5-14.5); RDW Standard Deviation 46.6 fL (36.4-46.3); Red Blood Count 5.13 M/uL (4.7-6.1); White Blood Count 5.02 K/uL (4.8-10.8)
[2018-11-30 18:01] LABS: Albumin Level 4.5 gm/dl (3.4-5.0); BUN Creatinine Ratio 17.1 (10-20); Calcium 9.4 mg/dl (8.5-10.1); Creatinine Clr Calc Pharmacy 90.9 ml/min; Est GFR (African American) 86.8; Est GFR (Non-African American) 74.9
[2018-11-30 18:06] LABS: Albumin Globulin Ratio 1.2 (0.9-2); Bilirubin,Total 0.3 mg/dl (0.2-1); Globulin 3.8 gm/dl (2.5-4.0); Total Protein 8.3 gm/dl (6.4-8.2); Troponin I 0.122 ng/ml (0-0.045)
[2018-11-30] MEDS ORDERED: CARVEDILOL 3.125 MG TAB PO ONE (19:02)
[2018-11-30] MEDS ORDERED: NITROGLYCERIN 2% OINTMENT 30GM TUBE EXT SCH (19:15)
--- NOTE | 2018-11-30 19:30 | History & Physical Report ---
Date of Service November 30, 2018 Assessment & Plan (1) NSTEMI (non-ST elevated myocardial infarction): (2) Precordial chest pain: (3) Elevated troponin: (4) Hypertension: (5) Dyslipidemia, goal LDL below 70: (6) Tobacco use disorder: (7) Elevated LFTs: (8) Dehydration: NSTEMI on Last admission, Coreg 6.25 PO Q12, Continue Norvasc, Trops, Cards eval, IVFs, OBS ROS-No Headache, No Visual Changes, No Nausea, No Vomiting, No Fever, No Chills, No Neck Pain or Stiffness, +Chest Pain, No Palpitations, + SOB, + ROD, No Cough, No Sputum, No Wheezing, No Abdominal Pain, No Diarrhea, No Hematemesis, No Hemoptysis, No Unexpected Weight Loss, No Flank pain, No Melena, No Hematochezia, No Frequency, No Urgency, No Burning, No Hematuria, No Rashes, No Diaphoresis. Appetite is Normal Physical Exam Gen-AAO x 3, NAD, Afebrile Head-NCAT, EOMI, PERRLA, Anicteric Sclera, No Posterior Pharyngeal Erythema Neck-Supple, No JVD, No Thyromegaly, No Masses, No LAD, No Bruits Lungs-Clear to Auscultation Bilaterally, No Rales, No Rhonchi, No Wheezing, No Crepitus Chest-No S4, +S1, +S2, No S3, No Murmurs, No Rubs, No Gallops, No Ectopy Abdomen-Soft, Bowel Sounds Present, Non Tender, Non Distended, No Hepatomegaly, No Splenomegaly, No Palpable Masses, No Rebound, No Rigidity, No Guarding Musculoskeletal-Full Range of Motion Bilaterally, No CVAT Extremities-No Cyanosis, No Clubbing, No Edema Nuero-Cranial Nerves II-XII grossly intact, Motor WNL, DTRs WNL, Strength WNL, Non Focal Psych-Normal Mood History of Present Illness 53 yomale c PMH of HTN, HLD, NSTEMI and sciatica was here 11/24 to 11/25 for a NSTEMI and Elev trop and had a clean cath performed by Dr Werner and was DCd home. While at work last night he developed a couple episodes of chest tightness, it was a stressful that night for him. 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 The ER along c Cards asked us to bring him in under observation. Cardio asked us to start Coreg as well. He was a bit dry on his chem 7 as well. Primary Care Provider: Shaun Norris DO Allergies Allergy/AdvReac Type Severity Reaction Status Date / Time Penicillins Allergy Intermediate RASH-ITCHIN Verified 11/30/18 17:23 ESS bupropion [From Wellbutrin] AdvReac Severe Suicidal Verified 11/30/18 17:23 Home Medications Home Medications Medication Instructions Recorded Confirmed Type amlodipine [Norvasc] 5 mg PO QAM 30 Days #30 tab 11/25/18 11/30/18 Rx atorvastatin 20 mg PO DAILY #30 tab 11/25/18 11/30/18 Rx hydrochlorothiazide 25 mg PO QAM 30 Days #30 tab 11/25/18 11/30/18 Rx Past Med/Surg History Medical History Hypertension (Chronic) Tobacco use disorder (Chronic) HLD (hyperlipidemia) NSTEMI (non-ST elevated myocardial infarction) Surgical History No history of previous surgery (Chronic) Family History Other Heart disease Social History Preferred Language: Indonesian Communication Ability: Effective Beliefs That Will Affect Care: Zoroastrianism Zoroastrianism Beliefs: Ep[employer]opalian Current Living Situation: Alone Feels Safe at Home: Yes Smoking Status: Current every day smoker Tobacco Type: cigarettes Second Hand Exposure: Yes Hx Alcohol Use: Yes Alcohol type: beer, wine and hard liquor Alcohol type Comment: 2-3 drinks most days Hx Substance Use: Yes substance use type: marijuana Last Used Substance: Days (ago) Results & Data Vital Signs (Past 12 Hours) Vital Signs Temp Pulse Pulse Resp BP BP Pulse Ox 11/30/18 18:30 69 18 150/98 H 97 11/30/18 16:46 36.9 C 93 H 20 157/99 H 96 Allergies Penicillins Allergy (Intermediate, Verified 11/30/18 17:23) RASH-ITCHINESS bupropion [From Wellbutrin] Adverse Reaction (Severe, Verified 11/30/18 17:23) Suicidal Height/Weight/Isolation Height 5 ft 11 in Weight 98.3 kg Chemistry 11/30/18 17:26 Sodium 137 Potassium 4.0 Chloride 102 Carbon Dioxide 29 Anion Gap 6.0 BUN 19 H Creatinine 1.11 Glucose 97
[2018-11-30] MEDS ORDERED: NITROGLYCERIN SL 0.4 MG/TAB TAB SL PRN (21:03)
[2018-11-30] MEDS ORDERED: ALUMINUM/MAGNESIUM SUSP 30 ML UDC PO PRN (21:03)
[2018-11-30] MEDS ORDERED: ASPIRIN 81 MG ECTAB PO SCH (21:03)
[2018-11-30] MEDS ORDERED: ONDANSETRON INJ 2 MG/ML 2 ML VIAL IV PRN (21:03)
[2018-11-30] MEDS ORDERED: POLYETHYLENE (MIRALAX) 17 GM PACK PO PRN (21:03)
[2018-11-30] MEDS ORDERED: ACETAMINOPHEN 325 MG TAB PO PRN (21:03)
[2018-11-30] MEDS: SODIUM CHLORIDE 0.9% 1000ML 1,000 ML IV SCH (22:02)
[2018-11-30] MEDS: CARVEDILOL 6.25 MG TAB PO SCH (22:38)
--- NOTE | 2018-11-30 23:32 | Emergency Department Note ---
Entered by Lyn Jimenez acting as a scribe for Johnny Bridges DO History of Present Illness General Chief complaint: Cardiac Assessment Stated complaint: SLIGHT TIGHTNESS IN CHEST, TINGLING IN LT ARM Source: patient History of Present Illness Provider complaint: chest pain Onset (ago): day(s) 4 Location: chest Pain Consistency: + other (persistent) Maximum Pain Intensity: 1 Quality: + other (tightness) Associated symptoms: + shortness of breath and + other (+tingling in left arm); no weakness Treatments prior to arrival: other (Tylenol) The patient is a 53 year old male who presents to the Emergency Room with complaints of persistent chest pain for the past 4 days. The patient states that he was here last week for similar symptoms and was discharged Tuesday. The patient states that his chest pain returned. He states that it feels like tightness in his chest. He states that he called his PCP about his persistent chest pain and they referred him to the ED. He notes that he had shortness of breath yesterday and tingling in his left arm. He denies any weakness. He states that he is not diabetic. He notes that his is a smoker and had one cigarette today. The patient notes that he had Tylenol this morning. Per the ED note, the patient was admitted and discharged for NSTEMI. Home Medications Home Medications Medication Instructions Recorded Confirmed Type amlodipine [Norvasc] 5 mg PO QAM 30 Days #30 tab 11/25/18 11/30/18 Rx atorvastatin 20 mg PO DAILY #30 tab 11/25/18 11/30/18 Rx hydrochlorothiazide 25 mg PO QAM 30 Days #30 tab 11/25/18 11/30/18 Rx Allergies Allergy/AdvReac Type Severity Reaction Status Date / Time Penicillins Allergy Intermediate RASH-ITCHIN Verified 11/30/18 17:23 ESS bupropion [From Wellbutrin] AdvReac Severe Suicidal Verified 11/30/18 17:23 Past Med/Surg History Medical History Hypertension (Chronic) Tobacco use disorder (Chronic) HLD (hyperlipidemia) NSTEMI (non-ST elevated myocardial infarction) Surgical History No history of previous surgery (Chronic) Family History Other Heart disease Social History Preferred Language: Tajik Communication Ability: Effective Souvenir Assembler Required: No Beliefs That Will Affect Care: Mormonism Mormonism Beliefs: Mormon Current Living Situation: Other Current Living Situation Comment: Roommate Other Information That Helps Us Care for You: No Feels Safe at Home: Yes Safety Concerns: Feels Safe At This Time Smoking Status: Current every day smoker Tobacco Type: cigarettes and cigars Do You Dip or Chew Tobacco: No Second Hand Exposure: No Tobacco Cessation Education Requested by Patient: No Hx Alcohol Use: Yes Alcohol type: beer, wine and hard liquor Alcohol type Comment: 2-3 drinks most days Hx Substance Use: Yes substance use type: former substance user, marijuana and crack/cocaine Last Used Substance: Days (ago) Review of Systems See HPI for pertinent positives & negatives. and A total of 10 systems reviewed and were otherwise negative Physical Exam Vital Signs Vital Signs - 24 hr 11/30/18 16:46 11/30/18 18:30 Temperature 36.9 C Temperature Source Oral Sepsis Recent Fever Within 48 Hours No Sepsis New/Unexplained Change in Mental Status No Sepsis Action Taken by Nursing No Action Required Pulse Rate 93 H Pulse Rate [Right Finger] 69 Respiratory Rate 20 18 Respiratory Effort / Characteristics Non-Labored Respiratory Depth Normal Respiratory Pattern Regular Blood Pressure 157/99 H Blood Pressure [Left Arm] 150/98 H Blood Pressure Mean 118 Blood Pressure Mean [Left Arm] 115 Blood Pressure Position Sitting Pulse Oximetry 96 97 Oxygen Delivery Method Room Air GENERAL: alert, sitting up in bed, anxious, in gown, well nourished, minimal distress, non-toxic EYE EXAM: normal conjunctiva OROPHARYNX: no exudate, no erythema, lips, buccal mucosa, and tongue normal and mucous membranes are moist NECK: supple, no nuchal rigidity, no adenopathy, non-tender LUNGS: Clear to auscultation. Normal chest wall mechanics HEART: no murmurs, S1 normal and S2 normal ABDOMEN: abdomen soft, non-tender, normo-active bowel sounds, no masses, no rebound or guarding. BACK: Back is symmetrical on inspection and there is no deformity, no midline tenderness, no CVA tenderness. SKIN: no rashes and no bruising UPPER EXTREMITIES: upper extremities are grossly normal, radial pulses equal bilateral LOWER EXTREMITIES: No pitting edema, calves equal bilateral NEURO EXAM: Normal sensorium, cranial nerves II-XII grossly intact, normal speech, no gross weakness of arms, no gross weakness of legs. Course 1700: The patient was evaluated in room C12B, and a complete history and physical examination were performed. 5: I discussed the patient's case with Dr. Kathleen Rojas Cardiology, he will accept the patient for further evaluation. 5: I reevaluated the patient and updated him on his results, he states that he is feeling better. Consultations Consultation #1: Dr. Kathleen Rjoas Cardiology Time: 16:55 Administered Medications Carvedilol (Coreg) 6.25 mg PO BID RANDALL Stop: 12/30/18 21:02 Last Admin: 11/30/18 22:38 Dose: 6.25 mg Documented by: [id number] Sodium Chloride (Nss 1000ml) 1,000 mls @ 125 mls/hr IV .Q8H RANDALL Stop: 12/30/18 21:02 Last Admin: 11/30/18 22:02 Dose: 125 mls/hr Documented by: [id number] Discontinued Medications Aspirin (Aspirin) 324 mg PO NOW STA Stop: 11/30/18 17:03 Last Admin: 11/30/18 17:35 Dose: 324 mg Documented by: [id number] Aspirin (Aspirin Chew) Confirm Administered Dose 81 mg .ROUTE .STK-MED ONE Stop: 11/30/18 17:33 Last Admin: 11/30/18 17:35 Dose: Not Given Documented by: [id number] Carvedilol (Coreg) 3.125 mg PO NOW ONE Stop: 11/30/18 19:03 Last Admin: 11/30/18 19:22 Dose: 3.125 mg Documented by: [id number] Nitroglycerin (Nitrostat) 0.4 mg SL NOW STA Stop: 11/30/18 17:03 Last Admin: 11/30/18 19:09 Dose: Not Given Documented by: [id number] Nitroglycerin (Nitro-Bid 2%) 2 inch EXT Q6H RANDALL Stop: 12/30/18 19:14 Last Admin: 11/30/18 19:22 Dose: 2 inch Documented by: [id number] Medical Decision Making Differential Diagnosis Differential diagnoses includes but is not limited to acute coronary syndrome, myocardial infarction, pericarditis, pulmonary embolus, aortic dissection, pneumonia, pneumothorax, musculoskeletal, shingles, esophageal. Medical Records Attestation: I reviewed the patient's medical records. Home Medications Current Medication List: was personally reviewed by me Laboratory Data Attestation: I reviewed the patient's lab results. Result diagrams: 11/30/18 17:26 11/30/18 17:26 Lab Results 11/30/18 11/30/18 Range/Units 17:26 17:26 WBC 5.02 (4.8-10.8) K/uL RBC 5.13 (4.7-6.1) M/uL Hgb 15.4 (14.0-18.0) g/dL Hct 44.3 (42-52) % MCV 86.4 (80-100) fL MCH 30.0 (25-34) pg MCHC 34.8 (32-36) g/dL RDW Std Deviation 46.6 H (36.4-46.3) fL RDW Coeff of Vasu 14.5 (11.5-14.5) % Plt Count 242 (130-400) K/uL MPV 10.4 (7.4-10.4) fL Immature Gran % (Auto) 0.2 % Neut % (Auto) 52.3 % Lymph % (Auto) 34.1 % [place] % (Auto) 8.2 % Eos % (Auto) 4.2 % Baso % (Auto) 1.0 % Immature Gran # (Auto) 0.01 (0.00-0.02) K/uL Neut # (Auto) 2.63 (1.4-6.5) K/uL Lymph # (Auto) 1.71 (1.2-3.4) K/uL [place] # (Auto) 0.41 (0.11-0.59) K/uL Eos # (Auto) 0.21 (0-0.5) K/uL Baso # (Auto) 0.05 (0-0.2) K/uL Sodium 137 (136-145) mmol/L Potassium 4.0 (3.5-5.1) mmol/L Chloride 102 (98-107) mmol/L Carbon Dioxide 29 (21-32) mmol/L Anion Gap 6.0 (3-11) BUN 19 H (7-18) mg/dl Creatinine 1.11 (0.6-1.4) mg/dl Est Cr Clr Drug Dosing 90.9 ml/min Est GFR ( Amer) 86.8 Est GFR (Non-Af Amer) 74.9 BUN/Creatinine Ratio 17.1 (10-20) Glucose 97 (70-99) mg/dl Calcium 9.4 (8.5-10.1) mg/dl Total Bilirubin 0.3 (0.2-1) mg/dl AST 42 H (15-37) U/L ALT 81 H (12-78) U/L Alkaline Phosphatase 75 (45-117) U/L Troponin I 0.122 H* (0-0.045) ng/ml Total Protein 8.3 H (6.4-8.2) gm/dl Albumin 4.5 (3.4-5.0) gm/dl Globulin 3.8 (2.5-4.0) gm/dl Albumin/Globulin Ratio 1.2 (0.9-2) Lipase 144 (73-393) U/L Specimen Hemolysis Imaging Data Radiologist's Impression: Radiology results as stated below per my review and the radiologist's interpretation: XR chest 1V portable CLINICAL HISTORY: Chest Pain dyspnea COMPARISON STUDY: 11/24/2017 FINDINGS: The bones soft tissues and hemidiaphragms are normal. The cardiomediastinal silhouette is normal. The lungs are clear. The pulmonary vasculature is normal. IMPRESSION: Negative chest. The above report was generated using voice recognition software. It may contain grammatical, syntax or spelling errors. Electronically signed by: Elroy Minor M.D. 11/30/2018 5:11 PM ECG Data Attestation: I personally reviewed and interpreted this ECG as follows: Indication: chest pain Rate (beats per minute): 82 Rhythm: sinus rhythm Findings: + T-wave inversion (lead 2 and lateral leads), + ST elevation (septal) and + left axis deviation Comparison ECG Date: from (11/24/18) Change: the following changes noted (ST elevation and TWI in lead 2 and aVL is new) Blood Pressure Blood Pressure Findings: Elevated blood pressure Blood Pressure Disposition: further management by hospitalist PORTIA Narrative Patient is a 53-year-old male with past medical history transaminitis, hypertensive emergency and NSTEMI who presents the ER for chest pain associated with left arm pain and some mild shortness of breath. He had a recent admission and discharge for the same exact symptoms following which she was cathed which showed normal coronaries. They believe the end STEMI was secondary to hypertensive emergency. Upon presentation he is found to have systolic blood pressures in the 160s. IV was established blood work was obtained. Labs show a mild leukocytosis. No significant anemia. BMP along with LFTs shows a mild transaminitis. Bilirubin was normal. No pain in the right upper quadrant. 5 days ago the troponin was 0.132. Today it is 0.122. As this was 5 days ago I would have expected his troponin to be lower. Based on this I discussed with cardiology and they agreed. Patient was given aspirin. He was not placed on heparin as based on his recent cath negative coronaries. Patient was placed on Nitropaste to help bring down his pressure. He was given sublingual nitro which resolved his symptoms completely. EKG was only slightly changed from previous. Lipase is normal. Patient was updated bedside and admitted to the hospital after discussion with the hospitalist. Impression & Plan Hypertensive emergency, Elevated troponin, Precordial chest pain Discharge Plan Visit Data *Final* Discharge Date/Time: 11/30/18 20:51 Chief Complaint: Cardiac Assessment Stated Complaint: SLIGHT TIGHTNESS IN CHEST, TINGLING IN LT ARM ED Provider: Johnny Bridges Discharge Problem: Hypertensive emergency, Elevated troponin, Precordial chest pain Patient Disposition: Admitted As Inpatient Discharge Instructions Interventions: ED Discharge Assessment Last Done: 11/30/18 20:51 The scribe's documentation has been prepared under my direction and personally reviewed by me in its entirety. I confirm that the note above accurately refle cts all work, treatment, procedures, and medical decision making performed by me.
[2018-12-01] MEDS: SODIUM CHLORIDE 0.9% 1000ML 1,000 ML IV SCH ×2 (03:27→11:27)
[2018-12-01 03:36] LABS: Hematocrit (blood only) 39.3 % (42-52); Hemoglobin 13.7 g/dL (14.0-18.0); Mean Corpuscular Hgb Conc 34.9 g/dL (32-36); Mean Corpuscular Volume 86.4 fL (80-100); Mean Platelet Volume 9.8 fL (7.4-10.4); Platelet Count 223 K/uL (130-400); RDW Coefficient of Variation 14.7 % (11.5-14.5); RDW Standard Deviation 46.4 fL (36.4-46.3); Red Blood Count 4.55 M/uL (4.7-6.1); White Blood Count 5.59 K/uL (4.8-10.8)
[2018-12-01 04:00] LABS: Albumin Globulin Ratio 1.2 (0.9-2); Albumin Level 3.6 gm/dl (3.4-5.0); BUN Creatinine Ratio 23.4 (10-20); Bilirubin,Total 0.2 mg/dl (0.2-1); Calcium 8.4 mg/dl (8.5-10.1); Globulin 3.1 gm/dl (2.5-4.0); Potassium 3.4 mmol/L (3.5-5.1); Total Protein 6.7 gm/dl (6.4-8.2); Troponin I 0.127 ng/ml (0-0.045)
[2018-12-01 04:10] LABS: Prothrombin Time 10.1 Seconds (9.0-12.0)
[2018-12-01] MEDS ORDERED: POTASSIUM CHLORIDE 20 MEQ TABCR PO STA ×2 (04:29→12:33)
[2018-12-01] MEDS: HEPARIN SOD 5,000 UNIT/0.5 ML VIAL SQ SCH ×3 (05:39→13:39)
--- NOTE | 2018-12-01 08:15 | Hospitalist Progress Note ---
Date of Service December 01, 2018 Assessment & Plan (1) Non-ST elevation (NSTEMI) myocardial infarction: Patient is a 53-year-old female with history of hypertension, hyperlipidemia, NSAID, sciatica, was here from 11/24 through two 11/25 for NSTEMI, had a clean cath performed by Dr. Byers, discharged home comes back with couple of episodes of chest tightness while at work the night of admission. CHEST PAIN, ATYPICAL Recent admission 11/24- 11/25 for Elevated troponin, Cardiac cath ON 11/24/18 was normal except hypertensive heart disease and diastolic dysfunction. Comes back with chest pain while at work (work related stress +) -EKG- T wave inversion I, II, III, AVF, V6, ST elevation V4, V5- No changes compared to prior EKG -Troponin- 0.122 --> 0.108 --> 0.127--> 0.102 -Started on coreg 6.25 MG po bid. Continue with atorvastatin -Echo 11/25/18- EF - 65-70, Moderate LVH Cardiology on board--> Ordered CT angiogram of chest for completeness due to recurrent pain. If normal, okay to discharge home. HTN Stable -Continue with hydrochlorothiazide 25 mg daily, amlodipine 5 mg daily. Started on Coreg 6.25 mg twice daily during this admission DYSLIPIDEMIA -Continue with atorvastatin TOBACCO ABUSE DISORDER Counseling about quitting done DVT PROPHYLAXIS Heparin SQ DISPOSITION Observation status Ok to discharge if CT angio is normal per cardiology' Subjective Patient is feeling well. He thinks he was very stressed at work which caused the left-sided chest pain and it is described more as pulling of muscle. No pain now. No shortness of breath, cough, fever, chills, shortness of breath. Physical Exam Physical Exam: GENERAL- AAOX3, No acute distress LUNGS- Air entry bilaterally equal. No rales, rhonchi, crackles, wheezes heard. HEART- Regular rate and rhythm. No murmurs ABDOMEN- Soft, non tender, non distended, Bowel sounds heard. EXTREMITIES- Good peripheral pulses, no edema Results & Data Vital Signs (Past 12 Hours) Vital Signs Temp Pulse Pulse Resp BP Pulse Ox 12/01/18 07:24 36.7 C 57 L 18 136/81 99 12/01/18 04:09 36.8 C 78 18 144/85 H 96 11/30/18 23:57 86 11/30/18 22:43 36.8 C 72 18 156/82 H 97 11/30/18 21:27 36.8 C 67 16 152/83 H 99
[2018-12-01] MEDS: CARVEDILOL 6.25 MG TAB PO SCH (08:45)
[2018-12-01] MEDS ORDERED: hydroCHLOROthiazide 25 MG TAB PO SCH (09:00)
[2018-12-01] MEDS ORDERED: AMLODIPINE BESYLATE 5 MG TAB PO SCH (09:00)
[2018-12-01] MEDS ORDERED: ASPIRIN 81 MG ECTAB PO SCH (09:00)
[2018-12-01] MEDS ORDERED: ATORVASTATIN 20 MG TAB PO SCH (09:00)
--- NOTE | 2018-12-01 11:20 | Cardiology Consultation ---
Date of Consultation December 01, 2018 Assessment & Plan (1) Chest pain: (2) Elevated troponin: (3) HTN (hypertension): (4) Hypertensive heart disease: 53 old gentleman admitted with recurrent left-sided chest tightness and discomfort. Discomfort associated with stress, anxiety, and activity during work. Currently pain-free after treatment with nitroglycerin and antihypertensive therapies. Blood pressure improved this morning. Recommend continuing hydrochlorothiazide, and amlodipine. Carvedilol 6.25 mg twice daily added per my instructions in the emergency department. Continue 6.[address] angiogram of the chest will be assessed for completeness due to recurrent pain. Recent coronary angiography demonstrated normal coronary anatomy with elevated left ventricular end-diastolic pressure consistent with hypertensive heart disease and diastolic dysfunction. Patient currently appears euvolemic. If CT of the chest is unremarkable, patient may be discharged home with medical therapies and cardiology follow-up as scheduled. History of Present Illness Reason for Consultation: Chest pain, uncontrolled hypertension Requesting Physician: Dr. Melinda Rhodes Attending Physician: Melinda Rhodes History of Present Illness 53-year-old male presents to the emergency department episode of chest tightness at work. Patient admits to an extremely stressful and strenuous evening at work. 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 He noticed some tightness of his left upper chest and shoulder. Symptoms similar to presentation last week. ECG demonstrates ST-T wave abnormalities likely related to strain and left ventricular hypertrophy. Patient taken urgently to the cardiac catheterization lab on November 24 for similar symptoms, EKG findings, and mildly elevated troponin. He was noted to have normal coronary anatomy however left ventricular end- diastolic pressure and systolic blood pressure markedly elevated. Resting 2D transthoracic echocardiogram with evidence of severe concentric left ventricular hypertrophy. Amlodipine and hydrochlorothiazide added approximately 5 days ago. Tolerating medications however blood pressure elevated at presentation. Patient given sublingual nitroglycerin and topical nitrates in the ER. Pain- free since admission. No dysrhythmias on telemetry. Currently asymptomatic. Carvedilol 6.25 mg twice daily added. Blood pressure improved. He offers no other concerns/complaints this time. Allergies Allergy/AdvReac Type Severity Reaction Status Date / Time Penicillins Allergy Intermediate RASH-ITCHIN Verified 11/30/18 17:23 ESS bupropion [From Wellbutrin] AdvReac Severe Suicidal Verified 11/30/18 17:23 Home Medications Home Medications Medication Instructions Recorded Confirmed Type amlodipine [Norvasc] 5 mg PO QAM 30 Days #30 tab 11/25/18 11/30/18 Rx atorvastatin 20 mg PO DAILY #30 tab 11/25/18 11/30/18 Rx hydrochlorothiazide 25 mg PO QAM 30 Days #30 tab 11/25/18 11/30/18 Rx Patient History Medical History Hypertension (Chronic) Tobacco use disorder (Chronic) HLD (hyperlipidemia) NSTEMI (non-ST elevated myocardial infarction) Surgical History No history of previous surgery (Chronic) Family History Other Heart disease Social History Preferred Language: [place] Communication Ability: Effective Helix Coil Winder Required: No Beliefs That Will Affect Care: Caodaism Caodaism Beliefs: Jain Current Living Situation: Other Current Living Situation Comment: Roommate Other Information That Helps Us Care for You: No Feels Safe at Home: Yes Safety Concerns: Feels Safe At This Time Smoking Status: Current every day smoker Tobacco Type: cigarettes and cigars Do You Dip or Chew Tobacco: No Second Hand Exposure: No Tobacco Cessation Education Requested by Patient: No Hx Alcohol Use: Yes Alcohol type: beer, wine and hard liquor Alcohol type Comment: 2-3 drinks most days Hx Substance Use: Yes substance use type: former substance user, marijuana and crack/cocaine Last Used Substance: Days (ago) Review of Systems Review of Systems: All systems reviewed & are unremarkable except as noted in HPI & below Physical Exam Physical Exam: General: NAD, AAO x3, well nourished. HEENT: Normocephalic. Atraumatic. Conjunctiva pink, no scleral icterus. Neck: No carotid bruits, the carotid upstrokes are brisk. No JVD. No HJR Heart: Regular normal S-1 and S-2 no S-3 or S-4 gallop. No murmurs or rub appreciated. PMI is not displaced. No RV heave. Lungs: Clear bilateral without rales , rhonchi, or wheeze. Abdomen: Normal bowel sounds. Soft. Nontender. No masses or organomegaly. No abdominal bruits. Extremities: No clubbing, cyanosis, or edema. Pulses: radial=2/4, Dorsalis pedis =2/4, posterior tibial=2/4. Neuro: Cranial nerves grossly intact. No focal motor deficit. Results & Data Vital Signs (Past 12 Hours) Vital Signs Temp Pulse Pulse Resp BP Pulse Ox 12/01/18 11:05 36.9 C 66 18 137/88 96 12/01/18 07:24 36.7 C 57 L 18 136/81 99 12/01/18 04:09 36.8 C 78 18 144/85 H 96 11/30/18 23:57 86 Laboratory Results Laboratory Results - last 24 hr 11/30/18 11/30/18 11/30/18 17:26 17:26 21:13 WBC 5.02 RBC 5.13 Hgb 15.4 Hct 44.3 MCV 86.4 MCH 30.0 MCHC 34.8 RDW Std Deviation 46.6 H RDW Coeff of Vasu 14.5 Plt Count 242 MPV 10.4 Immature Gran % (Auto) 0.2 Neut % (Auto) 52.3 Lymph % (Auto) 34.1 [place] % (Auto) 8.2 Eos % (Auto) 4.2 Baso % (Auto) 1.0 Immature Gran # (Auto) 0.01 Neut # (Auto) 2.63 Lymph # (Auto) 1.71 [place] # (Auto) 0.41 Eos # (Auto) 0.21 Baso # (Auto) 0.05 PT INR Sodium 137 Potassium 4.0 Chloride 102 Carbon Dioxide 29 Anion Gap 6.0 BUN 19 H Creatinine 1.11 Est Cr Clr Drug Dosing 90.9 Est GFR ( Amer) 86.8 Est GFR (Non-Af Amer) 74.9 BUN/Creatinine Ratio 17.1 Glucose 97 Calcium 9.4 Total Bilirubin 0.3 AST 42 H ALT 81 H Alkaline Phosphatase 75 Troponin I 0.122 H* 0.108 H* Total Protein 8.3 H Albumin 4.5 Globulin 3.8 Albumin/Globulin Ratio 1.2 Lipase 144 Specimen Hemolysis 12/01/18 12/01/18 12/01/18 03:22 03:22 03:22 WBC 5.59 RBC 4.55 L Hgb 13.7 L Hct 39.3 L MCV 86.4 MCH 30.1 MCHC 34.9 RDW Std Deviation 46.4 H RDW Coeff of Vasu 14.7 H Plt Count 223 MPV 9.8 Immature Gran % (Auto) Neut % (Auto) Lymph % (Auto) [place] % (Auto) Eos % (Auto) Baso % (Auto) Immature Gran # (Auto) Neut # (Auto) Lymph # (Auto) [place] # (Auto) Eos # (Auto) Baso # (Auto) PT 10.1 INR 1.0 Sodium 139 Potassium 3.4 L Chloride 104 Carbon Dioxide 30 Anion Gap 5.0 BUN 24 H Creatinine 1.03 Est Cr Clr Drug Dosing 98.0 Est GFR ( Amer) 95.0 Est GFR (Non-Af Amer) 82.0 BUN/Creatinine Ratio 23.4 H Glucose 135 H Calcium 8.4 L Total Bilirubin 0.2 AST 34 ALT 65 Alkaline Phosphatase 70 Troponin I 0.127 H* Total Protein 6.7 Albumin 3.6 Globulin 3.1 Albumin/Globulin Ratio 1.2 Lipase Specimen Hemolysis 12/01/18 08:58 WBC RBC Hgb Hct MCV MCH MCHC RDW Std Deviation RDW Coeff of Vasu Plt Count MPV Immature Gran % (Auto) Neut % (Auto) Lymph % (Auto) [place] % (Auto) Eos % (Auto) Baso % (Auto) Immature Gran # (Auto) Neut # (Auto) Lymph # (Auto) [place] # (Auto) Eos # (Auto) Baso # (Auto) PT INR Sodium Potassium Chloride Carbon Dioxide Anion Gap BUN Creatinine Est Cr Clr Drug Dosing Est GFR ( Amer) Est GFR (Non-Af Amer) BUN/Creatinine Ratio Glucose Calcium Total Bilirubin AST ALT Alkaline Phosphatase Troponin I 0.102 H* Total Protein Albumin Globulin Albumin/Globulin Ratio Lipase Specimen Hemolysis (1) Hypertensive heart disease Heart failure presence: without heart failure Qualified Code(s): I11.9 - Hypertensive heart disease without heart failure
[2018-12-01] MEDS ORDERED: OPTIRAY 320 125ml IV PRN (12:40)
--- NOTE | 2018-12-01 12:57 | CT Scan Report ---
CT ANGIOGRAM OF THE CHEST CLINICAL HISTORY: Atypical chest pain. Possible pulmonary embolism. COMPARISON STUDY: Chest x-ray dated 11/30/2018 TECHNIQUE: Following the IV administration of 119 mL of [id number]-[id number], CT angiogram of the thorax was p erformed from the thoracic inlet to the lung bases utilizing the pulmonary embolus protocol. Images a re reviewed in the axial, sagittal, and coronal planes. IV contrast was administered without complica tion. MIP imaging was performed. A dose lowering technique was utilized adhering to the principles o f ALARA. CT DOSE: 635.20 mGy.cm FINDINGS: No pathologically enlarged axillary mediastinal or hilar lymph nodes were visualized. There was no evidence of thoracic aortic dilatation. There were no pulmonary artery filling defects to indicate acute pulmonary embolism. No pleural effusions are visualized. There was no evidence of focal pulmonary consolidation. IMPRESSION: 1. No acute intrathoracic findings 2. No evidence of acute pulmonary embolism 3. No evidence of focal pulmonary consolidation. Electronically signed by: Tommy Perez M.D. 12/01/2018 12:56 PM
--- NOTE | 2018-12-01 14:48 | Discharge Summary ---
Date of Service December 01, 2018 Admission HPI Per Admitting Provider 53 yomale c PMH of HTN, HLD, NSTEMI and sciatica was here 11/24 to 11/25 for a NSTEMI and Elev trop and had a clean cath performed by Dr Werner and was DCd home. While at work last night he developed a couple episodes of chest tightness, it was a stressful that night for him. 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 The ER along c Cards asked us to bring him in under observation. Cardio asked us to start Coreg as well. He was a bit dry on his chem 7 as well. Principal Diagnosis 1. Chest pain, acute FL ruled out 2. Recent cardiac cath- normal 3. Elevated troponin, cardiac etiology ruled out SECONDARY DIAGNOSIS ON DISCHARGE 1. Hypertensive heart disease 2. Hypertension 3. Tobacco abuse disorder Discharge Exam GENERAL- AAOX3, No acute distress NECK- Supple, no JVD LUNGS- Air entry bilaterally equal. No rales, rhonchi, crackles, wheezes heard. HEART- Regular rate and rhythm. No murmurs ABDOMEN- Soft, non tender, non distended, Bowel sounds heard. EXTREMITIES- Good peripheral pulses, no edema Discharge Data Allergies Allergy/AdvReac Type Severity Reaction Status Date / Time Penicillins Allergy Intermediate RASH-ITCHIN Verified 11/30/18 17:23 ESS bupropion [From Wellbutrin] AdvReac Severe Suicidal Verified 11/30/18 17:23 Consultations 11/30/18 19:07 ED Decision to Admit Stat 11/30/18 21:03 Consult Cardiology Routine Ordered Studies 12/01/18 11:26 CT angio chest PE protocol Urgent Hospital Course (1) Chest pain: Patient is a 53-year-old female with history of hypertension, hyperlipidemia, NSAID, sciatica, was here from 11/24 through two 11/25 for NSTEMI, had a clean cath performed by Dr. Byers, discharged home comes back with couple of episodes of chest tightness while at work the night of admission. CHEST PAIN, ATYPICAL Elevated troponin, acute FL ruled out Recent admission 11/24- 11/25 for Elevated troponin, Cardiac cath ON 11/24/18 was normal except hypertensive heart disease and diastolic dysfunction. Comes back with chest pain while at work (work related stress +) -EKG- T wave inversion I, II, III, AVF, V6, ST elevation V4, V5- No changes compared to prior EKG -Troponin- 0.122 --> 0.108 --> 0.127--> 0.102 -Started on coreg 6.25 MG po bid. Continue with atorvastatin -Echo 11/25/18- EF - 65-70, Moderate LVH Cardiology on board--> Ordered CT angiogram of chest for completeness due to recurrent pain- Normal HTN Stable -Does have LVH -Continue with hydrochlorothiazide 25 mg daily, amlodipine 5 mg daily. Started on Coreg 6.25 mg twice daily during this admission -Monitor outpatient DYSLIPIDEMIA -Continue with atorvastatin TOBACCO ABUSE DISORDER Counseling about quitting done DVT PROPHYLAXIS Heparin SQ DISPOSITION Observation status Ok to discharge home Total Time Total Time Spent Total Time Spent (In Minutes): 25 minutes Discharge Plan Discharge Items Patient Disposition: Home - Self-Care Reason For Visit: CHEST PAIN Discharge Diagnosis: Chest pain, Acute Myocardial infarction ruled out Discharge Goals: Specific goals Specific Goals: Control BP, quit smoking Activity: Resume your previous activity Non-emergency contact: Primary Care Provider Call non-emergency contact if: your symptoms worsen Follow-up/Referrals: Shaun Norris DO [Primary Care Provider] - 12/05/18 10:55 am Diet: Low Sodium (2gm) Addtl Provider Instructions: MEDICATION CHANGES 1. New medication- Coreg 6.25 mg orally twice a day Monitor Blood pressure Prescriptions: New carvedilol 6.25 mg Tablet 6.25 mg PO BID 30 Days Qty: 60 RF: 0 Continued amlodipine [Norvasc] 5 mg Tablet 5 mg PO QAM 30 Days Qty: 30 RF: 0 hydrochlorothiazide 25 mg Tablet 25 mg PO QAM 30 Days Qty: 30 RF: 0 atorvastatin 20 mg tablet 20 mg PO DAILY Qty: 30 RF: 0 Stand-Alone Forms: [facility] Discharge Orders: Discharge Order (Routine); Ordered 12/01/18 Ordered By: Melinda Rhodes Admission Data Admit Date/Time: 11/30/18 19:55 Attending Provider: Melinda Rhodes Admit Provider: Javier Nesbitt Primary Care Provider: Shaun Norris Other Providers: Javier Nesbitt ; Stephon Werner Service: Telemetry Medical Other Interventions: Discharge Summary Assessment (RN) Last Done: 12/01/18 14:39
== END 2018-12-01 15:00 | disposition home or self-care (01) ==
LOC: ED 16:37 → 2W 16:37

== ENCOUNTER 2021-11-01 18:03 | Observation (INO) ==
[2021-11-01] MEDS ORDERED: METOPROLOL TARTRATE 1 MG/ML VIAL IV STA (18:16)
[2021-11-01] MEDS ORDERED: ASPIRIN CHEW 324 MG PO STA (18:16)
--- NOTE | 2021-11-01 18:20 | Emergency Department Note ---
Impression & Plan Chest pain, Abnormal EKG ED Provider Note NAME: ADALBERTO PITTMAN AGE: 56 SEX: M : 1965 ARRIVES VIA: Walk-In INFORMANT: Patient, ED PROVIDER(S): Dean Nick DO CHIEF COMPLAINT: Chest pain HPI: The patient is a 56-year-old male who presented to the emergency department for an evaluation of chest pain. The patient describes left-sided chest pain that goes to his left arm. He describes it as a tingling sensation going down his left arm. He describes the chest pressure as a pressure over the left side. He denies having any back pain. He denies having any swelling in the legs. He does admit to some alcohol use last evening. He denies having any epigastric pain or vomiting. He notices no black or bloody bowel movements. The patient states his pain began this morning when he awoke and has been constant. He does have a history of a similar episode in 2019. He did have a cardiac catheterization but no stents were placed at that time. He also states he has a history of hypertension and high cholesterol. He does not take his medications for his high blood pressure. He stopped this medication 8 months ago. He states his symptoms are not worsen with exertion. ROS: See above HPI for pertinent positives & negatives. A total of 10 systems reviewed and were otherwise negative. PAST MEDICAL HISTORY: See Below PAST SURGICAL HISTORY: See Below FAMILY HISTORY: See Below SOCIAL HISTORY: See Below HOME MEDICATIONS: See Below ALLERGIES: See Below VITALS: See Below PHYSICAL EXAMINATION: GENERAL: Patient is awake alert in no acute distress patient is resting comfortably and showing no signs of anxiety EYES: The conjunctivae are clear. The pupils are round and reactive. EARS, NOSE, MOUTH AND THROAT: The nose is without any evidence of any deformity. NECK: The neck is nontender and supple. RESPIRATORY: Normal respiratory effort is noted there is no evidence of wheezing rhonchi or rales CARDIOVASCULAR: Regular rate and rhythm noted there no murmurs rubs or gallops normal S1 normal S2. GASTROINTESTINAL: The abdomen is soft. Abdomen is nontender. MUSCULOSKELETAL/EXTREMITIES: There is no evidence of gross deformity full range of motion is noted in the hips and shoulders. SKIN: There is no obvious evidence of any rash. There are no petechiae, pallor or cyanosis noted. NEUROLOGIC: Patient is awake alert and oriented x3 MEDICAL DECISION MAKING: The patient is a 56-year-old male who presented to the emergency department for an evaluation of chest pain. The patient describes left-sided chest pain that goes to his left arm. The patient has had similar episodes in the past. He does have a history of hypertension but at this time does not take any medications for hypertension. He stopped taking his medications 8 months ago. The patient's presentation today could be consistent with a hypertensive urgency with resultant elevated blood pressure. He was treated with aspirin in the emergency department. Symptoms somewhat improved and his blood pressure improved with just monitoring. I discussed the patient's laboratory and radiographic studies with him. I also discussed the limitations of the emergency department work-up for chest pain with him. Ultimately given the patient's abnormal EKG and other findings I did discuss his case with the on- call [facility] building guard deputy sheriff as well as the on-call [facility] hospitalist. They have agreed to evaluate the patient in the emergency department for further ma nagement and disposition. Triage Nursing notes reviewed. Prior medical records reviewed Vital Signs: reviewed and remarkable for elevated blood pressure. Differential diagnosis: Cardiac ischemia, aortic dissection, pulmonary embolism, pneumothorax, pneumonia, pericarditis, myocarditis, esophageal rupture, GERD, cholecystitis, pancreatitis, musculoskeletal, as well as other pathologies. ER treatment provided: See below Diagnostics interpreted by me: ECG: EKG was obtained in the emergency department. My interpretation is sinus rhythm at 69 bpm. There is no ectopy. Nonspecific T wave abnormalities were noted in the inferior and low lateral leads. This consists of biphasic T waves as well as T wave versions. LVH was suggested by voltage criteria. This was compared to a tracing from December 01, 2018. No significant changes were noted. Cardiac Monitoring: An order was placed for continuous cardiac monitoring. The monitor shows a rate of 76 bpm with sinus rhythm. Laboratory studies: As stated above and show below. Imaging studies: See below Consultation(s): I discussed this case with Dr. Sommer who is on-call for the [facility] cardiology group. I discussed this case with Dr. Terrell who is on-call for the [facility] hospitalist group. Past Med/Surg History Medical History (Updated 11/01/21 @ 20:28 by Dean Nick DO) HLD (hyperlipidemia) Hypertension NSTEMI (non-ST elevated myocardial infarction) Tobacco use disorder Surgical History No history of previous surgery Family History Other Heart disease Social History Smoking Status: Current every day smoker Years Smoked: 40; Second Hand Exposure: No; Hx Alcohol Use: Yes Alcohol type: beer, wine and hard liquor Alcohol type Comment: 2-3 drinks most days Hx Substance Use: Yes Last Used Substance: Days (ago) Preferred Language: Monegasque Communication Ability: Effective Clinical Laboratory Service Teacher Required: No Beliefs That Will Affect Care: Quaker Quaker Beliefs: Faith Current Living Situation: Other Current Living Situation Comment: Roommate Feels Safe at Home: Yes Assistive Devices: None Allergies Allergies Allergy/AdvReac Type Severity Reaction Status Date / Time Penicillins Allergy Intermediate RASH-ITCHIN Verified 11/01/21 19:16 ESS bupropion [From Wellbutrin] AdvReac Severe Suicidal Verified 11/01/21 19:16 Home Meds Home Medications Medication Instructions Recorded Confirmed acetaminophen 500 mg tablet 1,000 mg PO DIRECTED PRN 11/01/21 11/01/21 (Tylenol Extra Strength) ibuprofen 200 mg tablet (Advil) 800 mg PO DIRECTED PRN 11/01/21 11/01/21 Results & Data (ED) Vital Signs Vital Signs - 24 hr 11/01/21 18:03 11/01/21 18:18 11/01/21 18:24 Temperature 36.3 C L Temperature Source Temporal Artery Scan Pulse Rate 79 71 92 H Respiratory Rate 18 19 19 Blood Pressure 212/120 H 165/103 H Blood Pressure Mean 150 123 Blood Pressure Position Sitting Pulse Oximetry 97 Oxygen Delivery Method Room Air Sepsis Recent Fever Within 48 Hours No Sepsis New/Unexplained Change in Mental Status No Sepsis Action Taken by Nursing No Action Required Pulse Oximetry Post Tiitration 11/01/21 18:29 11/01/21 18:30 11/01/21 18:45 Temperature Temperature Source Pulse Rate 84 74 Respiratory Rate 17 18 Blood Pressure 173/107 H Blood Pressure Mean 129 Blood Pressure Position Pulse Oximetry Oxygen Delivery Method Room Air Sepsis Recent Fever Within 48 Hours Sepsis New/Unexplained Change in Mental Status Sepsis Action Taken by Nursing Pulse Oximetry Post Tiitration 11/01/21 19:00 11/01/21 19:04 Temperature Temperature Source Pulse Rate 76 Respiratory Rate 20 Blood Pressure 163/100 H Blood Pressure Mean 121 Blood Pressure Position Pulse Oximetry Oxygen Delivery Method Room Air Sepsis Recent Fever Within 48 Hours Sepsis New/Unexplained Change in Mental Status Sepsis Action Taken by Nursing Pulse Oximetry Post Tiitration 94 Home Medications Current Medication List: was personally reviewed by me Laboratory Data Attestation: I reviewed the patient's lab results. Result diagrams: 11/01/21 18:19 11/01/21 18:19 Lab Results 11/01/21 11/01/21 11/01/21 Range/Units 18:19 18:19 18:19 WBC 6.65 (4.8-10.8) K/uL RBC 4.61 L (4.7-6.1) M/uL Hgb 14.3 (14.0-18.0) g/dL Hct 40.9 L (42-52) % MCV 88.7 (80-100) fL MCH 31.0 (25-34) pg MCHC 35.0 (32-36) g/dL RDW Std Deviation 48.5 H (36.4-46.3) fL RDW Coeff of Vasu 15.0 H (11.5-14.5) % Plt Count 295 (130-400) K/uL MPV 9.9 (7.4-10.4) fL Immature Gran % (Auto) 0.2 % Neut % (Auto) 53.0 % Lymph % (Auto) 34.1 % Whitman % (Auto) 8.1 % Eos % (Auto) 4.1 % Baso % (Auto) 0.5 % Neut # (Auto) 3.53 (1.4-6.5) K/uL Lymph # (Auto) 2.27 (1.2-3.4) K/uL Whitman # (Auto) 0.54 (0.11-0.59) K/uL Eos # (Auto) 0.27 (0-0.5) K/uL Baso # (Auto) 0.03 (0-0.2) K/uL Immature Gran # (Auto) 0.01 (0.00-0.02) K/uL PT 10.4 (9.0-12.0) Seconds INR 1.0 (0.9-1.1) APTT 25.4 (21.0-31.0) Seconds PTT Ratio 0.9 Sodium 141 (136-145) mmol/L Potassium TNP Chloride 109 H (98-107) mmol/L Carbon Dioxide 24 (21-32) mmol/L Anion Gap 8 (3-11) BUN 20 (6-23) mg/dl Creatinine 1.20 (0.6-1.4) mg/dl Est Cr Clr Drug Dosing 82.9 ml/min Est GFR ( Amer) 77.3 ml/min Est GFR (Non-Af Amer) 66.7 ml/min BUN/Creatinine Ratio 16.7 (10-20) Glucose 97 (70-99(Fasting)) mg/dl Calcium 9.5 (8.5-10.1) mg/dl Total Bilirubin 0.4 (0.2-1.0) mg/dl AST TNP ALT 35 (7-52) U/L Alkaline Phosphatase 61 (34-104) U/L Troponin I High Sens 13.5 (0-20) pg/ml Total Protein 7.2 (6.0-8.3) gm/dl Albumin 4.5 (3.4-5.0) gm/dl Globulin 2.7 (2.5-4.0) gm/dl Albumin/Globulin Ratio 1.7 (0.9-2) Lipase 36 (11-82) U/L // Range/Units 18:19 WBC (4.8-10.8) K/uL RBC (4.7-6.1) M/uL Hgb (14.0-18.0) g/dL Hct (42-52) % MCV (80-100) fL MCH (25-34) pg MCHC (32-36) g/dL RDW Std Deviation (36.4-46.3) fL RDW Coeff of Vasu (11.5-14.5) % Plt Count (130-400) K/uL MPV (7.4-10.4) fL Immature Gran % (Auto) % Neut % (Auto) % Lymph % (Auto) % Whitman % (Auto) % Eos % (Auto) % Baso % (Auto) % Neut # (Auto) (1.4-6.5) K/uL Lymph # (Auto) (1.2-3.4) K/uL Whitman # (Auto) (0.11-0.59) K/uL Eos # (Auto) (0-0.5) K/uL Baso # (Auto) (0-0.2) K/uL Immature Gran # (Auto) (0.00-0.02) K/uL PT (9.0-12.0) Seconds INR (0.9-1.1) APTT (21.0-31.0) Seconds PTT Ratio Sodium (136-145) mmol/L Potassium 3.9 Chloride (98-107) mmol/L Carbon Dioxide (21-32) mmol/L Anion Gap (3-11) BUN (6-23) mg/dl Creatinine (0.6-1.4) mg/dl Est Cr Clr Drug Dosing ml/min Est GFR ( Amer) ml/min Est GFR (Non-Af Amer) ml/min BUN/Creatinine Ratio (10-20) Glucose (70-99(Fasting)) mg/dl Calcium (8.5-10.1) mg/dl Total Bilirubin (0.2-1.0) mg/dl AST 25 ALT (7-52) U/L Alkaline Phosphatase (34-104) U/L Troponin I High Sens (0-20) pg/ml Total Protein (6.0-8.3) gm/dl Albumin (3.4-5.0) gm/dl Globulin (2.5-4.0) gm/dl Albumin/Globulin Ratio (0.9-2) Lipase (11-82) U/L Administered Medications Discontinued Medications Aspirin (Aspirin Chew 324 Mg) 324 mg PO NOW STA Stop: 11/01/21 18:17 Last Admin: 11/01/21 18:24 Dose: 324 mg Documented by: [id number] Imaging Data Radiologist's Impression: Chest X-Ray 11/01/21 18:16 XR chest 1V portable CLINICAL HISTORY: Atypical chest pain TECHNIQUE: Single frontal radiograph of the chest was obtained. Comparison: Comparison is made to chest radiograph 11/30/2018 FINDINGS: No lines and tubes are seen. The cardiomediastinal silhouette is normal. The lungs are clear. No evidence of pleural effusion or pneumothorax. IMPRESSION: No acute chest disease. ACT 112: Negative or not required by law. Electronically signed by: Eric Le M.D. 11/01/2021 6:52 PM Discharge Plan Visit Data Chief Complaint: Chest Pain Stated Complaint: CHEST PAIN, SOB, NUMBNESS IN ARM ED Provider: Dean Nick Discharge Problem: Chest pain, Abnormal EKG Patient Disposition: Being Evaluated by Hospitalist Forms Stand Alone Forms: [facility] Prescriptions Prescriptions: No Action acetaminophen [Tylenol Extra Strength] 500 mg Tablet 1,000 mg PO DIRECTED PRN (Reason: Pain) RF: 0 ibuprofen [Advil] 200 mg Tablet 800 mg PO DIRECTED PRN (Reason: Pain) RF: 0 Referrals Referrals: Shaun Norris, DO [Primary Care Provider] -
[2021-11-01 18:34] LABS: Basophils # (auto) 0.03 K/uL (0-0.2); Basophils % (auto) 0.5 %; Eosinophils # (auto) 0.27 K/uL (0-0.5); Eosinophils % (auto) 4.1 %; Hematocrit (blood only) 40.9 % (42-52); Hemoglobin 14.3 g/dL (14.0-18.0); Immature Granulocytes # (auto) 0.01 K/uL (0.00-0.02); Immature Granulocytes % (auto) 0.2 %; Lymphocytes # (auto) 2.27 K/uL (1.2-3.4); Lymphocytes % (auto) 34.1 %; Mean Corpuscular Volume 88.7 fL (80-100); Mean Platelet Volume 9.9 fL (7.4-10.4); Monocytes # (auto) 0.54 K/uL (0.11-0.59); Monocytes % (auto) 8.1 %; Neutrophils # (auto) 3.53 K/uL (1.4-6.5); Platelet Count 295 K/uL (130-400); RDW Standard Deviation 48.5 fL (36.4-46.3); Red Blood Count 4.61 M/uL (4.7-6.1); White Blood Count 6.65 K/uL (4.8-10.8)
[2021-11-01 18:47] LABS: Partial Thromboplastin Ratio 0.9; Partial Thromboplastin Time 25.4 Seconds (21.0-31.0); Prothrombin Time 10.4 Seconds (9.0-12.0)
--- NOTE | 2021-11-01 18:54 | XRay Report ---
XR chest 1V portable CLINICAL HISTORY: Atypical chest pain TECHNIQUE: Single frontal radiograph of the chest was obtained. Comparison: Comparison is made to chest radiograph 11/30/2018 FINDINGS: No lines and tubes are seen. The cardiomediastinal silhouette is normal. The lungs are clear. No evid ence of pleural effusion or pneumothorax. IMPRESSION: No acute chest disease. ACT 112: Negative or not required by law. Electronically signed by: Eric Le M.D. 11/01/2021 6:52 PM
[2021-11-01 18:56] LABS: Alanine Aminotransferase 35 U/L (7-52); Albumin Globulin Ratio 1.7 (0.9-2); Albumin Level 4.5 gm/dl (3.4-5.0); Alkaline Phosphatase 61 U/L (34-104); Anion Gap 8 (3-11); BUN Creatinine Ratio 16.7 (10-20); Bilirubin,Total 0.4 mg/dl (0.2-1.0); Blood Urea Nitrogen 20 mg/dl (6-23); Calcium 9.5 mg/dl (8.5-10.1); Carbon Dioxide 24 mmol/L (21-32); Chloride 109 mmol/L (98-107); Creatinine Clr Calc Pharmacy 82.9 ml/min; Est GFR (African American) 77.3 ml/min; Est GFR (Non-African American) 66.7 ml/min; Globulin 2.7 gm/dl (2.5-4.0); Glucose 97 mg/dl (70-99(Fasting)); Lipase 36 U/L (11-82); Sodium 141 mmol/L (136-145); Total Protein 7.2 gm/dl (6.0-8.3)
[2021-11-01 19:27] LABS: Potassium 3.9 mmol/L (3.5-5.1)
[2021-11-01 19:36] LABS: Troponin I High Sensitivity 13.5 pg/ml (0-20)
[2021-11-01 21:51] LABS: Troponin I High Sensitivity 14.6 pg/ml (0-20)
--- NOTE | 2021-11-01 21:52 | History & Physical Report ---
Date of Service November 01, 2021 Assessment & Plan (1) Chest pain: Plan: Secondary to hypertensive crisis History of medication noncompliance (Prior regimen included Coreg, amlodipine, HCTZ). hyperlipidemia, medication noncompliance Possible alcohol abuse Prediabetes, hemoglobin A1c of 6.1 in December 2018 ongoing tobacco abuse PCU Initiate lisinopril TTE in a.m. Re: Chest pain Resume statin DESHAWN S, DT precautions Nicotine patch. And DVT prophylaxis. Lovenox subcu Full code Text document was generated using [employer] voice recognition software. It may contain grammatical or spelling errors. Kindly contact undersigned for clarification of any documentation item in question. History of Present Illness Chief Complaint: Chest pain Primary Care Provider: Shaun Norris DO History obtained from patient, family, and records. Medical history significant for hypertension, hyperlipidemia, alcohol abuse, ongoing tobacco abuse, medication noncompliance. Last confinement November 2018 for chest pain. Normal coronaries on cardiac cath. Patient stopped taking home medications including blood pressure and cholesterol pills 6 months ago because he did not feel well taking them. Patient woke up this morning with chest pain going to the left arm. No shortness of breath no headache symptoms. Admits to partying last night. Alcohol intake somewhat heavy. No cough symptoms. SBP upon arrival at the ER 210s. Aspirin IV Lopressor administered at the ER. Patient currently comfortable. 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 Allergies Allergy/AdvReac Type Severity Reaction Status Date / Time Penicillins Allergy Intermediate RASH-ITCHIN Verified 11/01/21 19:16 ESS bupropion [From Wellbutrin] AdvReac Severe Suicidal Verified 11/01/21 19:16 Home Medications Medication Instructions Recorded Confirmed Type acetaminophen 500 mg tablet 1,000 mg PO DIRECTED PRN 11/01/21 11/01/21 History (Tylenol Extra Strength) ibuprofen 200 mg tablet (Advil) 800 mg PO DIRECTED PRN 11/01/21 11/01/21 History Past Med/Surg History Medical History (Updated 11/01/21 @ 20:28 by Dean Nick DO) HLD (hyperlipidemia) Hypertension NSTEMI (non-ST elevated myocardial infarction) Tobacco use disorder Surgical History No history of previous surgery Family History Other Heart disease Social History Smoking Status: Current every day smoker Years Smoked: 40; Second Hand Exposure: No; Do You Dip or Chew Tobacco: No; Hx Alcohol Use: Yes Alcohol type: beer, wine and hard liquor Alcohol type Comment: 2-3 drinks most days Hx Substance Use: Yes Last Used Substance: Days (ago) Preferred Language: Korean Communication Ability: Effective Certified Prosthetist/Orthotist Required: No Beliefs That Will Affect Care: Quaker Quaker Beliefs: Christianity Current Living Situation: Other Current Living Situation Comment: Roommate Other Information That Helps Us Care for You: No Feels Safe at Home: Yes Safety Concerns: Feels Safe At This Time Assistive Devices: Glasses Review of Systems 2 Review of Systems: As per HPI, all other systems reviewed and negative Physical Exam Physical Exam: GENERAL: Comfortable, slightly anxious, obese, no respiratory distress SKIN: Normal color, warm HEENT: [place] palpebral conjunctivae, no ptosis, dry buccal mucosa NECK : Supple, no tenderness CHEST : CTA, no tenderness HEART : RRR, no obvious murmurs ABDOMEN: Some distention, nontender EXTREMITIES : No LE swelling/tenderness, no other conspicuous deformities noted NEUROLOGIC : Coherent, no facial asymmetry, no other gross focality Results & Data Results & Data ([facility]) Vital Signs (Past 12 Hours) Vital Signs Temp Pulse Resp BP Pulse Ox 11/01/21 20:30 74 19 173/114 H 11/01/21 20:15 82 15 177/110 H 11/01/21 20:08 65 11 L 11/01/21 19:45 67 23 166/107 H 11/01/21 19:30 63 21 160/99 H 11/01/21 19:15 64 22 157/103 H 11/01/21 19:00 76 20 163/100 H 11/01/21 18:45 74 18 173/107 H 11/01/21 18:30 84 17 11/01/21 18:24 92 H 19 165/103 H 11/01/21 18:18 71 19 11/01/21 18:03 36.3 C L 79 18 212/120 H 97 Laboratory Results Laboratory Results WBC 6.65 K/uL (4.8-10.8) 11/01/21 18:19 RBC 4.61 M/uL (4.7-6.1) L 11/01/21 18:19 Hgb 14.3 g/dL (14.0-18.0) 11/01/21 18:19 Hct 40.9 % (42-52) L 11/01/21 18:19 MCV 88.7 fL (80-100) 11/01/21 18:19 MCH 31.0 pg (25-34) 11/01/21 18:19 MCHC 35.0 g/dL (32-36) 11/01/21 18:19 RDW Std Deviation 48.5 fL (36.4-46.3) H 11/01/21 18:19 RDW Coeff of Vasu 15.0 % (11.5-14.5) H 11/01/21 18:19 Plt Count 295 K/uL (130-400) 11/01/21 18:19 MPV 9.9 fL (7.4-10.4) 11/01/21 18:19 Immature Gran % (Auto) 0.2 % 11/01/21 18:19 Neut % (Auto) 53.0 % 11/01/21 18:19 Lymph % (Auto) 34.1 % 11/01/21 18:19 Heard % (Auto) 8.1 % 11/01/21 18:19 Eos % (Auto) 4.1 % 11/01/21 18:19 Baso % (Auto) 0.5 % 11/01/21 18:19 Neut # (Auto) 3.53 K/uL (1.4-6.5) 11/01/21 18:19 Lymph # (Auto) 2.27 K/uL (1.2-3.4) 11/01/21 18:19 Heard # (Auto) 0.54 K/uL (0.11-0.59) 11/01/21 18:19 Eos # (Auto) 0.27 K/uL (0-0.5) 11/01/21 18:19 Baso # (Auto) 0.03 K/uL (0-0.2) 11/01/21 18:19 Immature Gran # (Auto) 0.01 K/uL (0.00-0.02) 11/01/21 18:19 PT 10.4 Seconds (9.0-12.0) 11/01/21 18:19 INR 1.0 (0.9-1.1) 11/01/21 18:19 APTT 25.4 Seconds (21.0-31.0) 11/01/21 18:19 PTT Ratio 0.9 11/01/21 18:19 Sodium 141 mmol/L (136-145) 11/01/21 18:19 Potassium 3.9 mmol/L (3.5-5.1) 11/01/21 18:19 Potassium TNP 11/01/21 18:19 Chloride 109 mmol/L (98-107) H 11/01/21 18:19 Carbon Dioxide 24 mmol/L (21-32) 11/01/21 18:19 Anion Gap 8 (3-11) 11/01/21 18:19 BUN 20 mg/dl (6-23) 11/01/21 18:19 Creatinine 1.20 mg/dl (0.6-1.4) 11/01/21 18:19 Est Cr Clr Drug Dosing 82.9 ml/min 11/01/21 18:19 Est GFR ( Amer) 77.3 ml/min 11/01/21 18:19 Est GFR (Non-Af Amer) 66.7 ml/min 11/01/21 18:19 BUN/Creatinine Ratio 16.7 (10-20) 11/01/21 18:19 Glucose 97 mg/dl (70-99(Fasting)) 11/01/21 18:19 Calcium 9.5 mg/dl (8.5-10.1) 11/01/21 18:19 Magnesium 2.0 mg/dl (1.7-2.4) 11/01/21 20:57 Total Bilirubin 0.4 mg/dl (0.2-1.0) 11/01/21 18:19 AST 25 U/L (13-39) 11/01/21 18:19 AST TNP 11/01/21 18:19 ALT 35 U/L (7-52) 11/01/21 18:19 Alkaline Phosphatase 61 U/L (34-104) 11/01/21 18:19 Troponin I High Sens 14.6 pg/ml (0-20) 11/01/21 20:57 Total Protein 7.2 gm/dl (6.0-8.3) 11/01/21 18:19 Albumin 4.5 gm/dl (3.4-5.0) 11/01/21 18:19 Globulin 2.7 gm/dl (2.5-4.0) 11/01/21 18:19 Albumin/Globulin Ratio 1.7 (0.9-2) 11/01/21 18:19 Lipase 36 U/L (11-82) 11/01/21 18:19 SARS-CoV-2, RNA, NAAT NEGATIVE (NEGATIVE) 11/01/21 20:08 Impressions Chest X-Ray 11/01/21 18:16 XR chest 1V portable CLINICAL HISTORY: Atypical chest pain TECHNIQUE: Single frontal radiograph of the chest was obtained. Comparison: Comparison is made to chest radiograph 11/30/2018 FINDINGS: No lines and tubes are seen. The cardiomediastinal silhouette is normal. The lungs are clear. No evidence of pleural effusion or pneumothorax. IMPRESSION: No acute chest disease. ACT 112: Negative or not required by law. Electronically signed by: Erci Le M.D. 11/01/2021 6:52 PM Diagnostic Findings EKG as per my interpretation: Rate 70, NSR, normal axis, T wave abnormalities inferior and lateral leads (1) Chest pain Chest pain type: unspecified Qualified Code(s): R07.9 - Chest pain, unspecified
[2021-11-01] MEDS ORDERED: lisinopril 10 MG TAB PO STA (21:54)
[2021-11-01] MEDS ORDERED: THIAMINE HCL 100 MG in SYRINGE 9 ML IV ONE (22:00)
[2021-11-01] MEDS ORDERED: ACETAMINOPHEN 325 MG TAB PO PRN (23:01)
[2021-11-01] MEDS ORDERED: LORazepam 2 MG in SYRINGE 1 ML IV PRN (23:01)
[2021-11-01] MEDS ORDERED: NITROGLYCERIN SL 0.4 MG/TAB TAB SL PRN (23:01)
[2021-11-01] MEDS ORDERED: oxyCODONE HCL IR 5 MG TAB (IMMEDIATE RELEASE) PO PRN (23:01)
[2021-11-01] MEDS ORDERED: MoRPHine SULFATE 4 MG/ML 1 ML CARP\\VIAL IV PRN (23:01)
[2021-11-01] MEDS ORDERED: LORazepam 3 MG in SYRINGE 1.5 ML IV PRN (23:01)
[2021-11-01] MEDS ORDERED: LACTATED RINGER'S 1,000 ML IV ONE (23:01)
[2021-11-01] MEDS ORDERED: LORazepam 1 MG in SYRINGE 0.5 ML IV PRN (23:01)
[2021-11-01] MEDS ORDERED: PROMETHAZINE HCL 12.5 MG in SODIUM CHLORIDE 0.9% 50 ML IV PRN (23:01)
[2021-11-01] MEDS ORDERED: ATIVAN IV ALCOHOL WITHDRAWL IV PRN (23:01)
[2021-11-02] MEDS: THIAMINE HCL 100 MG TAB PO SCH ×2 (00:04→08:47)
[2021-11-02] MEDS: FOLIC ACID 1 MG TAB PO SCH ×2 (00:04→08:47)
[2021-11-02] MEDS ORDERED: lisinopril 10 MG TAB PO STA (00:58)
[2021-11-02 08:06] LABS: Basophils # (auto) 0.03 K/uL (0-0.2); Basophils % (auto) 0.5 %; Eosinophils % (auto) 7.1 %; Hematocrit (blood only) 38.5 % (42-52); Hemoglobin 13.6 g/dL (14.0-18.0); Immature Granulocytes # (auto) 0.01 K/uL (0.00-0.02); Immature Granulocytes % (auto) 0.2 %; Lymphocytes # (auto) 2.32 K/uL (1.2-3.4); Lymphocytes % (auto) 41.4 %; Mean Corpuscular Hemoglobin 31.1 pg (25-34); Mean Corpuscular Hgb Conc 35.3 g/dL (32-36); Mean Corpuscular Volume 88.1 fL (80-100); Mean Platelet Volume 10.5 fL (7.4-10.4); Monocytes # (auto) 0.58 K/uL (0.11-0.59); Monocytes % (auto) 10.3 %; Neutrophils # (auto) 2.27 K/uL (1.4-6.5); Neutrophils % (auto) 40.5 %; Platelet Count 276 K/uL (130-400); RDW Standard Deviation 48.6 fL (36.4-46.3); Red Blood Count 4.37 M/uL (4.7-6.1); White Blood Count 5.61 K/uL (4.8-10.8)
--- NOTE | 2021-11-02 08:23 | Electrocardiogram Report ---
Test Reason : Blood Pressure : / mmHG Vent. Rate : 069 BPM Atrial Rate : 069 BPM P-R Int : 146 ms QRS Dur : 090 ms QT Int : 368 ms P-R-T Axes : 046 006 -05 degrees QTc Int : 394 ms Normal sinus rhythm Chronic T-wave inversion in Inferolateral in leads Abnormal ECG When compared with ECG of 01-DEC-2018 07:17, No significant change was found Confirmed by Percy Dickens ([id number]) on 11/02/2021 8:23:04 AM Referred By: REFERRED SELF Confirmed By:Percy Dickens
[2021-11-02 08:42] LABS: BUN Creatinine Ratio 16.2 (10-20); Calcium 8.5 mg/dl (8.5-10.1); Creatinine Clr Calc Pharmacy 100.4 ml/min; Est GFR (African American) 97.6 ml/min; Est GFR (Non-African American) 84.2 ml/min; Potassium 3.8 mmol/L (3.5-5.1)
[2021-11-02] MEDS ORDERED: MULTIVITAMIN TAB PO SCH (09:00)
[2021-11-02] MEDS ORDERED: ATORVASTATIN 10 MG TAB PO SCH (09:00)
[2021-11-02] MEDS ORDERED: ENOXAPARIN INJ 40 MG/0.4 ML SYR SQ SCH (09:00)
--- NOTE | 2021-11-02 13:52 | Hospitalist Progress Note ---
Date of Service November 02, 2021 Assessment & Plan (1) Chest pain: Plan: Likely Secondary to hypertensive crisis-initial BP at 212/120 History of medication noncompliance (Prior regimen included Coreg, amlodipine, HCTZ). Blood pressure seems to be reasonably controlled at 152/60 Denies any more chest pain EKG changes seems to be due to hypertension and no significant change compared with prior Awaiting echo Patient remains free of any pain and will likely be discharged this afternoon Hyperlipidemia, medication noncompliance Possible alcohol abuse Prediabetes, hemoglobin A1c of 6.1 in December 2018 Ongoing tobacco abuse strongly advised to quit smoking Nicotine patch. And DVT prophylaxis. Lovenox subcu Full code Admission and Anticipated Discharge Date Admission Date: November 01, 2021 Subjective 11/02/2021 The patient was seen and examined in telemetry unit He was admitted with chest pain likely secondary to uncontrolled blood pressure No more chest pain since admission and troponins remain unremarkable Review of Systems Review of Systems: All systems reviewed and and are unremarkable except as noted below Cardiovascular: Additional Comments: No chest pain and/or palpitation Physical Exam Physical Exam: Lying in bed comfortably Constitutional: well developed, well nourished and + obese; not ill appearing Eyes: PERRL, conjunctivae normal, anicteric sclerae ENMT: external ear and nose normal, oropharynx normal Neck: trachea midline, no thyromegaly Respiratory: no respiratory distress Auscultation: lungs clear to auscultation bilaterally Cardiovascular: Rate/Rhythm: regular rate and regular rhythm; not tachycardic Heart Sounds: normal S1 and normal S2; no murmur Extremities: no edema Gastrointestinal (Abdomen): Inspection/Auscultation: normal bowel sounds; abdomen not distended Percussion/Palpation: abdomen soft; abdomen nontender Musculoskeletal: No acute arthritis in any joint Neurologic: Alert, awake and oriented x3. No focal sensory or no motor deficit appreciated Psychiatric: A+Ox3, euthymic affect Lymphatic: no cervical or axillary lymphadenopathy Results & Data Results & Data ([facility]) Vital Signs (Past 12 Hours) Vital Signs Temp Pulse Pulse Resp BP Pulse Ox 11/02/21 11:00 36.8 C 79 16 152/63 H 97 11/02/21 08:00 36.8 C 76 18 149/62 H 96 11/02/21 07:00 62 11/02/21 02:55 36.8 C 76 18 150/98 H 97 Laboratory Results Short CBC 11/01/21 11/02/21 Range/Units 18:19 07:09 WBC 6.65 5.61 (4.8-10.8) K/uL Hgb 14.3 13.6 L (14.0-18.0) g/dL Hct 40.9 L 38.5 L (42-52) % Plt Count 295 276 (130-400) K/uL BMP 11/01/21 11/01/21 11/02/21 18:19 18:19 07:09 Sodium 141 140 Potassium TNP 3.9 3.8 Chloride 109 H 107 Carbon Dioxide 24 29 BUN 20 16 Creatinine 1.20 0.99 Glucose 97 89 Calcium 9.5 8.5 Liver Function 11/01/21 11/01/21 Range/Units 18:19 18:19 Total Bilirubin 0.4 (0.2-1.0) mg/dl AST TNP 25 ALT 35 (7-52) U/L Alkaline Phosphatase 61 (34-104) U/L Albumin 4.5 (3.4-5.0) gm/dl Medications Administered Current Inpatient Medications Acetaminophen (Acetaminophen 325 Mg Tab) 650 mg PO Q4H PRN PRN Reason: Pain or Fever Stop: 12/01/21 23:00 Atorvastatin Calcium (Atorvastatin 10 Mg Tab) 10 mg PO [facility] Stop: 12/02/21 08:59 Last Admin: 11/02/21 08:47 Dose: 10 mg Documented by: Enoxaparin Sodium (Enoxaparin Inj 40 Mg/0.4 Ml Syr) 40 mg SQ [facility] Stop: 12/02/21 08:59 Last Admin: 11/02/21 08:47 Dose: 40 mg Documented by: Folic Acid (Folic Acid 1 Mg Tab) 1 mg PO [facility] Stop: 12/01/21 23:00 Last Admin: 11/02/21 08:47 Dose: 1 mg Documented by: Lorazepam 1 mg/ Syringe 1 mls @ 2 mls/min IV UD PRN; Protocol PRN Reason: EtOH Withdrawal AWSS Score 6,7 Stop: 12/01/21 23:00 Lorazepam 2 mg/ Syringe 2 mls @ 2 mls/min IV UD PRN; Protocol PRN Reason: EtOH Withdrawal AWSS Score 8,9 Stop: 12/01/21 23:00 Lorazepam 3 mg/ Syringe 3 mls @ 2 mls/min IV ONCE PRN; Protocol PRN Reason: EtOH Withdrawal AWSS Score >=10 Stop: 12/01/21 23:00 Promethazine HCl 12.5 mg/ (Sodium Chloride) 50.5 mls @ 202 mls/hr IV Q6H PRN PRN Reason: Nausea And Vomiting Stop: 12/01/21 23:00 Lactated Ringer's (Lr) 1,000 mls @ 40 mls/hr IV .Q24H ONE Stop: 11/02/21 23:00 Last Admin: 11/02/21 00:04 Dose: 40 mls/hr Documented by: Lisinopril (Lisinopril 20 Mg Tab) 20 mg PO [facility] Stop: 12/02/21 20:59 Morphine Sulfate (Morphine Sulfate 4 Mg/Ml 1 Ml Carp\Vial) 4 mg IV Q4H PRN PRN Reason: Pain Stop: 11/15/21 23:00 Multivitamins (Multivitamin Tab) 1 tab PO [facility] Stop: 12/02/21 08:59 Last Admin: 11/02/21 08:47 Dose: 1 tab Documented by: Nitroglycerin (Nitroglycerin Sl 0.4 Mg/Tab Tab) 0.4 mg SL UD PRN PRN Reason: Chest Pain Stop: 12/01/21 23:00 Oxycodone HCl (Oxycodone Hcl Ir 5 Mg Tab (Immediate Release)) 5 - 10 mg PO QID PRN PRN Reason: Pain Stop: 11/15/21 23:00 Thiamine HCl (Thiamine Hcl 100 Mg Tab) [facility] Stop: 12/01/21 23:00 Last Admin: 11/02/21 08:47 Dose: 100 mg Documented by: (1) Chest pain Chest pain type: unspecified Qualified Code(s): R07.9 - Chest pain, unspecified
--- NOTE | 2021-11-02 18:11 | Discharge Summary ---
Date of Service November 02, 2021 Admission HPI Per Admitting Provider History obtained from patient, family, and records. Medical history significant for hypertension, hyperlipidemia, alcohol abuse, ongoing tobacco abuse, medication noncompliance. Last confinement November 2018 for chest pain. Normal coronaries on cardiac cath. Patient stopped taking home medications including blood pressure and cholesterol pills 6 months ago because he did not feel well taking them. Patient woke up this morning with chest pain going to the left arm. No shortness of breath no headache symptoms. Admits to partying last night. Alcohol intake somewhat heavy. No cough symptoms. SBP upon arrival at the ER 210s. Aspirin IV Lopressor administered at the ER. Patient currently comfortable. 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 Admission Exam Per Admitting Provider Physical Exam: GENERAL: Comfortable, slightly anxious, obese, no respiratory distress SKIN: Normal color, warm HEENT: [place] palpebral conjunctivae, no ptosis, dry buccal mucosa NECK : Supple, no tenderness CHEST : CTA, no tenderness HEART : RRR, no obvious murmurs ABDOMEN: Some distention, nontender EXTREMITIES : No LE swelling/tenderness, no other conspicuous deformities noted NEUROLOGIC : Coherent, no facial asymmetry, no other gross focality Principal Diagnosis Chest pain likely secondary to very high blood pressure, no ACS, hyperlipidemia Discharge Exam Lying in bed comfortably Constitutional well developed, well nourished and + obese; not ill appearing Eyes PERRL, conjunctivae normal, anicteric sclerae ENMT external ear and nose normal, oropharynx normal Neck trachea midline, no thyromegaly Respiratory no respiratory distress Auscultation: lungs clear to auscultation bilaterally Cardiovascular Rate/Rhythm: regular rate and regular rhythm; not tachycardic Heart Sounds: normal S1 and normal S2; no murmur Extremities: no edema Gastrointestinal (Abdomen) Inspection/Auscultation: normal bowel sounds; abdomen not distended Percussion/Palpation: abdomen soft; abdomen nontender Psychiatric A+Ox3, euthymic affect Lymphatic no cervical or axillary lymphadenopathy Discharge Data Allergies Allergy/AdvReac Type Severity Reaction Status Date / Time Penicillins Allergy Intermediate RASH-ITCHIN Verified 11/01/21 19:16 ESS bupropion [From Wellbutrin] AdvReac Severe Suicidal Verified 11/01/21 19:16 Consultations 11/01/21 20:12 ED Decision to Admit Stat Hospital Course (1) Chest pain: Likely Secondary to hypertensive crisis-initial BP at 212/120 History of medication noncompliance (Prior regimen included Coreg, amlodipine, HCTZ). Blood pressure seems to be reasonably controlled at 152/60 Denies any more chest pain EKG changes seems to be due to hypertension and no significant change compared with prior Awaiting echo Patient remains free of any pain and will likely be discharged this afternoon Hyperlipidemia, medication noncompliance Possible alcohol abuse Prediabetes, hemoglobin A1c of 6.1 in December 2018 Ongoing tobacco abuse strongly advised to quit smoking Nicotine patch. And DVT prophylaxis. Lovenox subcu Full code Total Time Total Time Spent Total Time Spent (In Minutes): 35 minutes Discharge Plan Discharge Items Patient Disposition: Home - Self-Care Reason For Visit: CP Discharge Diagnosis: Chest pain likely secondary to very high blood pressure, no ACS, hyperlipidemia Condition on Discharge: Good Activity: Resume your previous activity Weightbearing: Full weightbearing Non-emergency contact: Primary Care Provider Call non-emergency contact if: you have any medication questions and your symptoms worsen Follow-up/Referrals: Shaun Norris DO [Primary Care Provider] - (Date & Time 11/10/2021 11:00 AM Provider Shaun Norris DO Department [facility] ) Diet: Heart Healthy and Low Sodium (2gm) Addtl Attending Provider Instructions: Please take it easy for the next few days Go back to work on Tuesday Take your medications as advised-new medications are going to be atorvastatin 10 mg daily, folic acid 1 mg daily, lisinopril 20 mg daily and thiamine 100 mg d aily Please quit drinking alcohol Please give appointment with your healthcare providers Pending Studies at Discharge: No Stand-Alone Forms: My [employer], Work/School Release, Smoking Cessation Medications and DC Order Prescriptions: New atorvastatin 10 mg Tablet 10 mg PO QAM Qty: 30 RF: 0 lisinopril 20 mg Tablet 20 mg PO HS 30 Days Qty: 30 RF: 0 folic acid 1 mg Tablet 1 mg PO QAM Qty: 30 RF: 0 thiamine HCl (vitamin B1) 100 mg Tablet 100 mg PO QAM Qty: 30 RF: 0 Continued acetaminophen [Tylenol Extra Strength] 500 mg Tablet 1,000 mg PO DIRECTED PRN (Reason: Pain) RF: 0 ibuprofen [Advil] 200 mg Tablet 800 mg PO DIRECTED PRN (Reason: Pain) RF: 0 Discharge Orders: Discharge Order (Routine); Ordered 11/02/21 Ordered By: Jessica Rendon Admission Data Admit Date/Time: 11/01/21 21:56 Attending Provider: Jessica Rendon Admit Provider: Warner Rios Primary Care Provider: Shuan Norris Other Providers: Warner Rios Other Interventions: Discharge Summary Assessment (RN) Last Done: 11/02/21 17:51
[2021-11-02] MEDS ORDERED: lisinopril 20 MG TAB PO SCH (21:00)
[2021-11-02] MEDS ORDERED: lisinopril 10 MG TAB PO SCH (21:00)
--- NOTE | 2021-11-03 08:04 | Electrocardiogram Report ---
Test Reason : Blood Pressure : / mmHG Vent. Rate : 056 BPM Atrial Rate : 056 BPM P-R Int : 120 ms QRS Dur : 092 ms QT Int : 416 ms P-R-T Axes : 068 029 -46 degrees QTc Int : 401 ms Poor data quality, interpretation may be adversely affected Sinus bradycardia Chronic T-wave inversion in Anterolateral leads T-wave inversion in Inferior leads , consider ischemia Abnormal ECG When compared with ECG of 01-NOV-2021 18:13, Inverted T waves have replaced nonspecific T wave abnormality in Inferior leads Confirmed by Percy Dickens ([id number]) on 11/03/2021 8:04:36 AM Referred By: REFERRED SELF Confirmed By:Percy Dickens
== END 2021-11-02 18:48 | disposition home or self-care (01) ==
LOC: ED 18:03 → 2E 18:03